=== PATIENT | female | born 1965 | race Caucasian/White ===

== ENCOUNTER 2019-04-01 11:21 | Emergency (ER) | payer OTHER, SELFPAY ==
--- NOTE | ~2019-04-01 | CT_ITS ---
EXAMINATION: CT abdomen pelvis w con DATE: 04/01/2019 13:40 INDICATION: Perirectal pain and green-colored discharge. TECHNIQUE: Computed tomography (CT) of the abdomen and pelvis was performed with 100 mL Omnipaque-350 intravenous contrast. Automated exposure control and iterative reconstruction technique were employe d. The dose-length product was 1239.60 mGy-cm. COMPARISON: 04/19/2017 FINDINGS: Mild dependent atelectasis in the bilateral lower lobes. Heart size is normal. No pericardial or pleu ral effusion. Mild aortic valve calcification. Small region of focal hepatic steatosis at the ligamen marcus teres. Gallbladder, spleen, pancreas, bilateral adrenal glands and kidneys are normal. Normal batsheva endix. A few sigmoid diverticula without adjacent inflammatory change to suggest diverticulitis. Jovani ls are otherwise unremarkable. No perirectal abscess or surrounding inflammatory stranding. Bladder i s normal. The uterus is not identified and has likely been surgically resected. No free intraperitone al gas or fluid. No pathologically enlarged abdominal or pelvic lymphadenopathy. Severe spondylosis a t the lumbosacral junction otherwise mild degenerative skeletal changes in the spine and bilateral hi ps. IMPRESSION: 1. No perirectal abscess or acute intra-abdominal/pelvic process. Reviewed, dictated and finalized at location A. KNITTER
[2019-04-01 11:30] VITALS: BP 144/90; PULSE 98; RESP 20; TEMP 36.6; O2SAT 98
--- NOTE | 2019-04-01 11:39 | ED.ABDPAIN ---
HPI - Abdominal Pain General Chief Complaint: Skin/Abscess/Foreign Body Stated Complaint: Rectal pain Time Seen by Provider: 04/01/19 11:39 Source: patient Mode of arrival: ambulatory Limitations: no limitations History of Present Illness HPI narrative: 53 year-old woman comes to the ED today for rectal pain and green rectal discharge. It is very painful to sit. She has been treated for hemorrhoids since 03/27 with topical steroids. She denies h/o hemorroids, but has had surgeries for fistulae in 2005 and 2008 in [facility]. She has also noticed erythema at her umbilicus and green drainage on a Qtip she placed there. She denies nausea, vomiting, fever, dysuria, hematuria and abdominal pain. She ate a cinnamon roll this morning for breakfast. Onset (ago): day(s) (5) Pain Consistency: constant Location: other (rectal) Severity: severe Quality: sharp Radiation: none Migration to: no migration Exacerbating factors: bowel movement and other (sitting) Relieving factors: nothing Related Data Allergies Allergy/AdvReac Type Severity Reaction Status Date / Time sumatriptan [From Imitrex] Allergy Severe Swelling Verified 04/01/19 14:05 of Lip/Tongue/Throat Sulfa (Sulfonamide Allergy Intermediate Joint Verified 04/01/19 14:05 Antibiotics) swelling Review of Systems Constitutional: Constitutional: Denies chills, Denies fever(s) and Denies weakness Eyes: Eyes: Denies change in vision and Denies photophobia ENT: Denies dysphagia, Denies nasal congestion and Denies sore throat Cardiovascular: Cardiovascular: Denies chest pain and Denies radiating jaw, neck or arm pain Respiratory: Respiratory: Denies cough, Denies dyspnea and Denies wheezing Gastrointestinal: Gastrointestinal: Reports as per HPI, Denies abdominal pain, Denies diarrhea, Denies nausea and Denies vomiting Genitourinary: Genitourinary: Denies hematuria, Denies nocturia and Denies dysuria Comments: Rash on labia Musculoskeletal: Musculoskeletal: Denies back pain and Denies arthralgias Integumentary/Breasts: Skin/Breast: Reports as per HPI, Denies pruritus, Denies erythema and Reports rash Neurologic: Denies vertigo, Denies dizziness and Denies syncope Psychiatric: Psychiatric: Denies anxiety and Denies depression Endocrine: Endocrine: Denies polydipsia and Denies polyuria Hematologic/Lymphatic: Hematologic/Lymphatic: Denies easy bleeding and Denies easy bruising Allergic/Immunologic: Allergic/Immunologic: Denies lip swelling and Denies wheezing PMFSH Past Medical History Medical History (Updated 04/01/19 @ 14:08 by Joe Tomas MD) Chronic renal failure HTN (hypertension) Migraines Surgical History Surgical History H/O sinus surgery History of History of carpal tunnel surgery Perirectal fistula x 2 Social History Social History (Updated 04/01/19 @ 12:06 by Joe Tomas MD) Smoking status: Never smoker Alcohol intake: never Substance use: never Living arrangements: with family Exam Const: General: alert Nutritional Appearance: obese Orientation/consciousness: patient oriented x3 Other: Moderate acute distress HENMT: Mouth: Yes Normal oral and palatal mucosa present and Yes moist mucous membranes Eyes: Conjunctivae: conjunctivae normal Pupils: Equal, round and reactive pupils present EOM: EOMs intact bilaterally Resp: Effort & Inspection: normal respiratory effort and not labored Auscultation: clear to auscultation bilaterally, no rales, no rhonchi and no wheezes Cardio: Rate: regular rate Rhythm: regular rhythm Heart sounds: no murmurs GI: Inspection: non-distended GI Palp: Yes Soft to palpation, No Tenderness to palpation present (GI) and No Guarding due to palpation present (GI) Auscultation: normal bowel sounds Other: Circumferential, well-demarcated perirectal erythema with patches of white exudate. There is similar erythema
[2019-04-01 12:16] LABS: Basophils Absolute Auto 0.03 K/mm3 (0.00-0.10); Basophils Percent Auto 0.2 % (0.0-1.0); Eosinophils Absolute Auto 0.18 K/mm3 (0.02-0.50); Eosinophils Percent Auto 1.2 % (1.0-6.0); Hematocrit 41.7 % (35.0-49.0); Hemoglobin 13.7 g/dL (12.0-15.0); Immature Granulocyte Absolute 0.04 K/mm3 (0.00-0.00); Immature Granulocyte Percent A 0.3 % (0.0-0.0); Lymphocytes Absolute Auto 1.51 K/mm3 (1.10-4.50); Lymphocytes Percent Auto 10.4 % (18.0-42.0); Mean Corpuscular HGB Conc 32.9 g/dL (32.0-36.0); Mean Corpuscular Volume 94.3 fL (78.0-102.0); Mean Platelet Volume 10.1 fl (9.2-11.8); Monocytes Absolute Auto 0.91 K/mm3 (0.10-0.90); Monocytes Percent Auto 6.3 % (2.0-11.0); Neutrophils Absolute Auto 11.8 K/mm3 (1.7-7.2); Neutrophils Percent Auto 81.6 % (50.0-70.0); Platelet Count Result 360 K/mm3 (150-420); Red Blood Count 4.42 M/mm3 (4.20-5.40); Red Cell Distribution Width 12.4 % (11.6-14.4); White Blood Count 14.5 K/mm3 (4.8-10.8)
[2019-04-01 12:18] LABS: Bilirubin Urine Negative (Negative); Blood Urine Negative (Negative); Glucose Urine UA Negative (Negative); Ketones Urine Negative (Negative); Leukocyte Esterase Ur Trace (Negative); Nitrate Urine Negative (Negative); Protein Urine Negative (Negative); Specific Grav Ur 1.025 (1.010-1.020); Urobilinogen Urine 0.2 mg/dL (0.2-1.0)
[2019-04-01 12:20] LABS: Add Urine Microscopic? YES; Appearance Urine Cloudy (Clear); Color Urine Dark Yellow (Yellow); WBC Urine 0-3 /hpf (0-3)
[2019-04-01 12:21] LABS: RBC Urine 0-2 /hpf (0-2); Squamous Epithelial Cell Urine Few /hpf (Few)
[2019-04-01] MEDS: SODIUM CHLORIDE 0.9% IV 1,000 ML 999 ML IV CONT (12:23)
[2019-04-01] MEDS: HYDROMORPHONE HCL 2 MG/ML VIAL 0.5 MG IV PUSH (12:23)
[2019-04-01] MEDS: ONDANSETRON INJ 4 MG/2 ML VIAL IV PUSH (12:24)
[2019-04-01 12:35] LABS: Alanine Aminotransferase 17 U/L (14-59); Albumin Level 3.8 g/dL (3.4-5.0); Alkaline Phosphatase 81 U/L (46-116); Anion Gap 16.4 mmol/L (7-16); Aspartate Amino Transferase 16 U/L (15-37); Bilirubin,Total 0.6 mg/dL (0.00-1.00); Blood Urea Nitrogen 15 mg/dL (7-18); CRP 1.7 mg/dL (0.0-0.9); Calcium 8.7 mg/dL (8.5-10.1); Carbon Dioxide 23 mmol/L (21-32); Chloride 103 mmol/L (98-108); Estimated CRCL calculation 59 ml/min; Estimated Glomerular Filt Rate 43; Glucose 92 mg/dL (70-99); Osmolality Calculated 288 mOsm/kg (285-295); Potassium 3.4 mmol/L (3.5-5.1); Sodium 139 mmol/L (136-145); Total Protein 7.9 g/dL (6.4-8.2)
[2019-04-01 12:37] LABS: Lactic Acid 1.2 mmol/L (0.4-2.0)
[2019-04-01 14:26] VITALS: BP 149/86; PULSE 87; RESP 18; O2SAT 97
== END 2019-04-01 14:30 | disposition home or self-care (01) ==
PROVIDERS: Emergency Provider Emergency Medicine; PCP Internal Medicine
DX: K61.1 Rectal abscess (principal); N18.2 Chronic kidney disease, stage 2 (mild); L03.818 Cellulitis of other sites
CPT/HCPCS: 36415; 74177; 80053; 81001; 83605; 85025; 86140; 87040; 87070; 87077; 87086; 87088; 87205; 96361; 96374; 96375; 99283; 99284; J1170; J2405; J7030; Q9965

== ENCOUNTER 2019-10-11 09:22 | Outpatient (CLI) | payer OTHER, SELFPAY ==
[2019-10-12 14:11] LABS: SARS-CoV-2 RNA PCR Positive
== END 2019-10-11 09:23 | disposition home or self-care (01) ==
LOC: CHSLAB 09:24
PROVIDERS: PCP Internal Medicine; Visit Provider Internal Medicine
DX: U07.1 COVID-19 (principal)
CPT/HCPCS: 87635; C9803; U0003

== ENCOUNTER 2020-01-20 21:15 | Observation (INO) | payer OTHER, SELFPAY ==
--- NOTE | ~2020-01-20 | US_ITS ---
EXAMINATION: US right upper quadrant DATE: 01/21/2020 08:38 INDICATION: Positive Bell sign TECHNIQUE: Multiple grayscale and Doppler ultrasound images of the abdomen were obtained. COMPARISON: CT dated 01/20/2020 FINDINGS: The pancreatic head and body are normal in appearance. The pancreatic tail is not visualized. Liver has normal echogenicity and contour, with a smooth surface. No liver lesion identified. No intrahepat ic biliary duct dilation suspected. Portal venous flow was seen in the hepatopetal, normal direction and has normal Doppler waveform. The visualized proximal inferior vena cava is normal. The gallbladde r is normal in appearance. There is no cholelithiasis. The common bile duct measures 5 mm, which is normal. Sonographic Bell sign was reported as positive by the process coach. IMPRESSION: 1. Positive sonographic Bell sign but with otherwise normal right upper quadrant ultrasound includi ng normal gallbladder with no wall thickening or cholelithiasis. Reviewed, dictated and finalized at location A. WORKER IMPRESSION: 1. Positive sonographic Bell sign but with otherwise normal right upper quadr ant ultrasound including normal gallbladder with no wall thickening or cholelit hiasis.
--- NOTE | ~2020-01-20 | CT_ITS ---
EXAMINATION: CT abdomen pelvis w con DATE: 01/20/2020 22:44 INDICATION: Right flank pain TECHNIQUE: Computed tomography (CT) of the abdomen and pelvis was performed without intravenous contr ast. Automated exposure control and iterative reconstruction technique were employed. The dose-length product was 1291.50 mGy-cm. COMPARISON: None FINDINGS: Lung bases are clear. Heart size is normal. No pericardial or pleural effusion. Aortic valve calcific ation. Small sliding-type hiatal hernia. Liver, gallbladder, spleen, pancreas, right adrenal gland an d bilateral kidneys are normal. 11 mm left adrenal nodule which can be seen dating back to 04/19/2017 a nd with relatively low density most consistent with an adenoma. Bowels including the appendix are nor mal. Bladder is normal. The uterus is not identified and has likely been surgically resected. No free intraperitoneal gas or fluid. No pathologically enlarged abdominal or pelvic lymphadenopathy. Tiny f at-containing umbilical hernia. Severe lumbosacral spondylosis with mild spondylosis in the more ceph alad lumbar and mid to lower thoracic spine. IMPRESSION: 1. No acute intra-abdominal/pelvic process. 2. Small sliding-type hiatal hernia. Reviewed, dictated and finalized at location A. AR FUSER
--- NOTE | ~2020-01-20 | XR_ITS ---
EXAMINATION: XR chest 2V DATE: 01/20/2020 21:57 INDICATION: Right flank pain TECHNIQUE: PA and lateral views of the chest were obtained. COMPARISON: None FINDINGS: The lungs are clear with no focal airspace opacities, pulmonary edema, pleural effusion or pneumothor ax. The cardiomediastinal silhouette is normal. Mild to moderate thoracic spondylosis. IMPRESSION: 1. No acute cardiopulmonary disease. Reviewed, dictated and finalized at location A. EATIONAL [employer]AC[employer]IES MOTEL MANAGER
[2020-01-20 21:15] VITALS: BP 153/100; PULSE 82; RESP 20; TEMP 36.6; O2SAT 99
[2020-01-20 21:19] VITALS: PULSE 77
--- NOTE | 2020-01-20 21:41 | ECG_ITS ---
Measurements Intervals [place] Rate: 72 P: 52 [place]: 142 QRS: -12 QRSD: 98 T: 31 QT: 427 QTc: 470 Interpretive Statements SINUS RHYTHM EARLY PRECORDIAL R/S TRANSITION LOW QRS VOLTAGE IN PRECORDIAL LEADS VOLTAGE CRITERIA FOR LVH MINIMAL Q WAVES- HIGH LATERAL LEADS BORDERLINE ECG Electronically Signed On 01-21-2020 7:15:53 HAND SUTURE WINDER by Bro Millan D.O.
--- NOTE | 2020-01-20 21:47 | ED.ABDPAIN ---
HPI - Abdominal Pain General Chief Complaint: Chest Pain Stated Complaint: 54 YO female w/ 4-5 day h/o R chest/RUQ abd pain that started after she ate a fatty meal. States she thought she had covid but was tested negative on tuesday. here for evaluation and pain relief. Related Data Home Medications Medication Instructions Recorded Confirmed atorvastatin 10 mg PO DAILY 01/20/20 01/20/20 hyoscyamine sulfate 0.375 mg PO BID 01/20/20 01/20/20 nortriptyline 50 mg PO DAILY 01/20/20 01/20/20 spironolacton-hydrochlorothiaz 1 tablet PO DAILY 01/20/20 01/20/20 topiramate 100 mg PO BID 01/20/20 01/20/20 Allergies Allergy/AdvReac Type Severity Reaction Status Date / Time sumatriptan [From Imitrex] Allergy Severe Swelling Verified 06/22/19 07:57 of Lip/Tongue/Throat Sulfa (Sulfonamide Allergy Intermediate Joint Verified 06/22/19 07:57 Antibiotics) swelling hydrocodone Allergy Unknown Verified 01/20/20 21:32 SUMATRIPTAN SUCCINATE Allergy Severe CLOSED Uncoded 06/22/19 07:57 AIRWAY Review of Systems Review of Systems: All systems reviewed & are unremarkable except as noted in HPI and below Constitutional: Constitutional: Reports no additional constitutional complaints, Reports chills and Denies fever(s) Cardiovascular: Cardiovascular: Reports no additional cardiovascular complaints Respiratory: Respiratory: Reports no additional respiratory complaints Gastrointestinal: Gastrointestinal: Reports abdominal pain (RUQ abd pain), Reports heartburn and Reports nausea Genitourinary: Genitourinary: Reports no additional female genitourinary complaints Musculoskeletal: Musculoskeletal: Reports no additional musculoskeletal complaints Integumentary/Breasts: Skin/Breast: Reports system reviewed and no additional complaints, except as docu Neurologic: Reports system reviewed and no additional complaints, except as documented Psychiatric: Psychiatric: Reports no additional psychiatric complaints Endocrine: Endocrine: Reports no additional endocrine complaints Hematologic/Lymphatic: Hematologic/Lymphatic: Reports no additional hematologic/lymphatic complaints Allergic/Immunologic: Allergic/Immunologic: Reports no additional allergic/immunologic complaints PMFSH Past Medical History Medical History Chronic renal failure HTN (hypertension) Migraines Surgical History Surgical History H/O sinus surgery History of History of carpal tunnel surgery Perirectal fistula x 2 Family History Family History Mother Hypertension Father Family history of congestive heart failure Grandparent Hypertension Other Diabetes mellitus Social History Social History Smoking status: Former smoker Smoking end date: 02/14/06 Alcohol intake: current Substance use: never Exam Const: General: alert and ill appearing Nutritional Appearance: obese Orientation/consciousness: patient oriented x3 Limitations: no limitations HENMT: Head: normal to inspection General nose exam: Normal nares present Face and sinus: normal facial exam Mouth: Yes Normal oral and palatal mucosa present Teeth and gingiva: dentition normal Throat: posterior oropharynx normal Eyes: Conjunctivae: conjunctivae normal Pupils: Equal, round and reactive pupils present Neck: Neck: normal visual inspection Chest: Chest palpation & inspection: normal inspection of the chest Resp: Effort & Inspection: normal respiratory effort Auscultation: clear to auscultation bilaterally Cardio: Rate: regular rate Rhythm: regular rhythm GI: Inspection: non-distended GI Palp: Yes Soft to palpation and Yes Tenderness to palpation present (GI) (RUQ TTP w/ positive pendleton's sign) Percussion: Yes normal to percussion Auscu
[2020-01-20 22:08] LABS: Basophils Absolute Auto 0.04 K/mm3 (0.00-0.10); Basophils Percent Auto 0.4 % (0.0-1.0); Eosinophils Absolute Auto 0.27 K/mm3 (0.02-0.50); Eosinophils Percent Auto 2.8 % (1.0-6.0); Hematocrit 41.9 % (35.0-49.0); Hemoglobin 13.9 g/dL (12.0-15.0); Immature Granulocyte Absolute 0.03 K/mm3 (0.00-0.00); Immature Granulocyte Percent A 0.3 % (0.0-0.0); Lymphocytes Absolute Auto 2.61 K/mm3 (1.10-4.50); Lymphocytes Percent Auto 27.3 % (18.0-42.0); Mean Corpuscular HGB Conc 33.2 g/dL (32.0-36.0); Mean Corpuscular Hemoglobin 30.3 pg (27.0-31.0); Mean Corpuscular Volume 91.5 fL (78.0-102.0); Mean Platelet Volume 10.5 fl (9.2-11.8); Monocytes Absolute Auto 0.67 K/mm3 (0.10-0.90); Neutrophils Percent Auto 62.2 % (50.0-70.0); Platelet Count Result 319 K/mm3 (150-420); Red Blood Count 4.58 M/mm3 (4.20-5.40); Red Cell Distribution Width 12.3 % (11.6-14.4); White Blood Count 9.6 K/mm3 (4.8-10.8)
[2020-01-20] MEDS: ONDANSETRON INJ 4 MG/2 ML VIAL IV PUSH (22:20)
[2020-01-20] MEDS: MORPHINE SULFATE (*CRX) 2 MG/ML INJ IV PUSH (22:20)
[2020-01-20] MEDS: SODIUM CHLORIDE 0.9% IV 1,000 ML 999 ML IV CONT (22:20)
[2020-01-20 22:22] LABS: D Dimer 0.27 mg/L (0.19-0.50); INR 0.9; Partial Thromboplastin Time 26.5 SEC (23.90-30.70)
[2020-01-20 22:24] LABS: Alanine Aminotransferase 14 U/L (14-59); Albumin Level 3.7 g/dL (3.4-5.0); Alkaline Phosphatase 70 U/L (46-116); Anion Gap 13 mmol/L (8-16); Aspartate Amino Transferase 11 U/L (15-37); Bilirubin,Total 0.3 mg/dL (0.00-1.00); Blood Urea Nitrogen 24 mg/dL (7-18); Calcium 8.6 mg/dL (8.5-10.1); Carbon Dioxide 23 mmol/L (21-32); Chloride 104 mmol/L (98-108); Estimated CRCL calculation 55 ml/min; Estimated Glomerular Filt Rate 42; Glucose 91 mg/dL (70-99); Osmolality Calculated 294 mOsm/kg (285-295); Potassium 3.4 mmol/L (3.5-5.1); Sodium 140 mmol/L (136-145); Total Protein 7.3 g/dL (6.4-8.2); Troponin I 18.1 ng/L (0.00-60.4)
[2020-01-20 22:28] LABS: BNP 40.1 pg/mL (0-100)
[2020-01-20 23:25] VITALS: BP 130/79; PULSE 73; RESP 20; O2SAT 98
[2020-01-20] MEDS: SODIUM CHLORIDE 0.9% IV 1,000 ML 150 ML IV CONT (23:51)
--- NOTE | 2020-01-20 23:52 | PC.NURSE ---
ERP discussed POC c pt. Orders to admit for OBS. received.
[2020-01-21 00:24] VITALS: BP 133/75; PULSE 72; RESP 20; TEMP 36.6; O2SAT 98
[2020-01-21 00:42] VITALS: BMI 33.5
--- NOTE | 2020-01-21 01:07 | PC.NURSE ---
Female patient transported by stretcher from ER. C/O abd pain. #18 gauge IV in right AC. NS going at 150 cc/hr. Alert and oriented x3. Answers questions appropiately. No skin issures observed. Placed in bed in Room 204. Instructed integration analyst light, room, routines. Patient states understanding.
[2020-01-21 01:12] VITALS: BP 163/82; PULSE 71; RESP 18; TEMP 36.2; O2SAT 98
--- NOTE | 2020-01-21 01:30 | PC.NURSE ---
Patient had recent Covid test. Results were negative.
[2020-01-21] MEDS: DEXTROSE 5%/0.9% SOD CHL 1,000 ML 100 ML IV CONT (01:40)
--- NOTE | 2020-01-21 02:11 | PC.NURSE ---
Patient resting quietly. IV of D5/NS infusing at 100 cc/hr. Patient resting quietly, resp even. SR up x2. Call light within reach.
[2020-01-21] MEDS: MORPHINE SULFATE (*CRX) 2 MG/ML INJ IV PUSH ×2 (03:01→07:20)
--- NOTE | 2020-01-21 03:03 | PC.NURSE ---
Patient grimacing and c/o abd pain rating at a 9:10. PRN pain medication given.
[2020-01-21 03:42] VITALS: BP 121/76; PULSE 69; RESP 18; TEMP 36.1; O2SAT 95
[2020-01-21 05:31] LABS: Basophils Absolute Auto 0.02 K/mm3 (0.00-0.10); Basophils Percent Auto 0.3 % (0.0-1.0); Eosinophils Absolute Auto 0.28 K/mm3 (0.02-0.50); Eosinophils Percent Auto 3.6 % (1.0-6.0); Hematocrit 36.7 % (35.0-49.0); Hemoglobin 11.9 g/dL (12.0-15.0); Immature Granulocyte Absolute 0.02 K/mm3 (0.00-0.00); Immature Granulocyte Percent A 0.3 % (0.0-0.0); Lymphocytes Absolute Auto 2.25 K/mm3 (1.10-4.50); Lymphocytes Percent Auto 28.9 % (18.0-42.0); Mean Corpuscular HGB Conc 32.4 g/dL (32.0-36.0); Mean Corpuscular Hemoglobin 30.3 pg (27.0-31.0); Mean Corpuscular Volume 93.4 fL (78.0-102.0); Mean Platelet Volume 10.7 fl (9.2-11.8); Monocytes Absolute Auto 0.56 K/mm3 (0.10-0.90); Monocytes Percent Auto 7.2 % (2.0-11.0); Neutrophils Absolute Auto 4.7 K/mm3 (1.7-7.2); Neutrophils Percent Auto 59.7 % (50.0-70.0); Platelet Count Result 268 K/mm3 (150-420); Red Blood Count 3.93 M/mm3 (4.20-5.40); Red Cell Distribution Width 12.3 % (11.6-14.4); White Blood Count 7.8 K/mm3 (4.8-10.8)
--- NOTE | 2020-01-21 06:00 | PC.NURSE ---
SBA up to bathroom to void, tolerated well, facial grimacing when getting out of bed, moving slowly, steady, fluids infusing
[2020-01-21 08:00] VITALS: BP 131/84; PULSE 67; RESP 16; TEMP 35.9; O2SAT 99
[2020-01-21] MEDS: HYOSCYAMINE SULFATE 0.125 MG TABLET PO (08:50)
[2020-01-21] MEDS: hydroCHLOROthiazide 25 MG TABLET PO (08:51)
[2020-01-21] MEDS: SPIRONOLACTONE 25 MG TABLET PO (08:51)
[2020-01-21] MEDS: ATORVASTATIN 10 MG TABLET PO (08:51)
[2020-01-21] MEDS: NORTRIPTYLINE HCL 25 MG CAPSULE 50 MG PO (08:51)
[2020-01-21] MEDS: TOPIRAMATE 25 MG TABLET 100 MG PO (08:52)
[2020-01-21] MEDS: ENOXAPARIN 40 MG/0.4 ML SYRINGE SUB-Q (08:52)
[2020-01-21] MEDS: POTASSIUM CHLORIDE 20 MEQ TABLET 40 MEQ PO (09:37)
--- NOTE | 2020-01-21 11:18 | PM.SD ---
Same Day Admit/Disch: HPI History of Present Illness Chief complaint: RUQ abd pain cholelithiasis <ALE Sheets - Last Filed: 01/21/20 11:30> Narrative: Rosa Isela Landa is a 54 year old female that presented to the ED with complaints of right upper quadrant pain and nausea. Patient has a past medical history of chronic renal failure, hypertension and migraines. According to patient Tuesday she started developing pain in her right upper quadrant. She did note that she took ibuprofen at home with no relief. She also noted that after she ate her pain increased. She also experienced nausea with no vomiting and presented to the ED because the pain was unbearable yesterday. Today patient continues to have right upper quadrant tenderness with occasional nausea. Patient diagnostic test did return back negative we will advance her diet and discharge her with a follow-up with her primary care physician. We will consult her primary care physician for possible consult with a GI to scope her for possible ulcer <ALE Sheets - Last Filed: 01/21/20 11:30> [facility] Past Medical History Medical History: Medical History Chronic renal failure HTN (hypertension) Migraines <ALE Sheets - Last Filed: 01/21/20 11:30> Surgical History Surgical History: Surgical History H/O sinus surgery History of History of carpal tunnel surgery Perirectal fistula x 2 <ALE Sheets - Last Filed: 01/21/20 11:30> Family History Family History: Family History Mother Hypertension Father Family history of congestive heart failure Grandparent Hypertension Other Diabetes mellitus <ALE Sheets - Last Filed: 01/21/20 11:30> Social History Social History: Social History Smoking status: Never smoker Second hand tobacco smoke exposure: No Smoking end date: 02/14/06 Alcohol intake: never Substance use: never Substance use type: does not use Gender identity (if verbalized by the patient): Female Sexual Orientation (if Verbalized by the Patient): Straight or Heterosexual Spiritual care concerns: No <ALE Sheets - Last Filed: 01/21/20 11:30> Same Day Admit/Disch: Med Pre-admit Medications Home Medications: Home Medications Medication Instructions Recorded Confirmed Type atorvastatin 10 mg PO DAILY 01/20/20 01/20/20 History hyoscyamine sulfate 0.375 mg PO BID 01/20/20 01/20/20 History nortriptyline 50 mg PO DAILY 01/20/20 01/20/20 History spironolacton-hydrochlorothiaz 1 tablet PO DAILY 01/20/20 01/20/20 History topiramate 100 mg PO BID 01/20/20 01/20/20 History ondansetron HCl [Zofran] 4 mg PO Q8H PRN #30 tablet 01/21/20 Rx oxycodone-acetaminophen 1 tablet PO Q6H PRN #14 tablet 01/21/20 Rx pantoprazole 20 mg PO QAM 56 Days #56 tablet 01/21/20 Rx <ALE Sheets - Last Filed: 01/21/20 11:30> Exam Narrative: Exam Narrative: GENERAL: This is a well-nourished, well-developed patient, in no apparent distress. HEAD: normocephalic, atraumatic. EYES: PERRL. Sclera clear/white. Vision is grossly intact. EARS: External ears normal, auditory canals clear and without drainage, TMs normal without perforation. Hearing grossly intact. NOSE: External nose normal with no obvious nasal discharge, nares without redness, no rhinorrhea. THROAT: Mucous membranes moist, posterior pharynx clear. NECK: Neck supple, non-tender without lymphadenopathy, masses or thyromegaly. CARDIOVASCULAR: Regular rate and rhythm without murmurs, gallops, or rubs. RESPIRATORY: Clear to auscultation. Breath sounds equal bilaterally. No wheezes, rales, or rhonchi. GASTROINTESTINAL: Abdomen soft, right upper quadrant tenderness. B
[2020-01-21 12:24] LABS: Lipase 532 U/L (73-393)
--- NOTE | 2020-01-30 11:13 | PC.NURSE ---
Unable to contact for discharge call back.
== END 2020-01-21 12:40 | disposition home or self-care (01) ==
LOC: CHSED 23:30 → CHS2ND 01-21 07:34
PROVIDERS: Nurse Practitioner; Admitting Provider Family Medicine; Emergency Provider Family Medicine; PCP Internal Medicine; Visit Provider Family Medicine
DX: R10.11 Right upper quadrant pain (principal); R07.9 Chest pain, unspecified; I12.9 Hypertensive chronic kidney disease with stage 1 through stage 4 chronic kidney disease, or unspecified chronic kidney disease; N18.2 Chronic kidney disease, stage 2 (mild); G43.909 Migraine, unspecified, not intractable, without status migrainosus; Z87.891 Personal history of nicotine dependence
CPT/HCPCS: 36415; 71046; 74177; 76705; 80053; 83690; 83880; 84484; 85025; 85380; 85610; 85730; 93005; 96361; 96365; 96372; 96375; 96376; 99285; A9270; G0378; J1650; J2270; J2405; J2543; J7030; J7042; Q9965

== ENCOUNTER 2020-04-04 09:20 | Outpatient (CLI) | payer OTHER, SELFPAY | END 2020-04-04 09:21 | disposition home or self-care (01) | LOC: ANHBWCAUD 09:20 | PROVIDERS: PCP Internal Medicine; Visit Provider Otolaryngology | DX: H93.13 Tinnitus, bilateral (principal); H90.3 Sensorineural hearing loss, bilateral | CPT/HCPCS: 92557; 92567 ==

== ENCOUNTER 2020-06-05 07:23 | Outpatient (CLI) | payer OTHER, SELFPAY ==
--- NOTE | 2020-06-05 08:16 | ECHO_ITS ---
Patient Info Name: Rosa Isela Landa Age: 54 years : 1965 Gender: Female Ht: 69 in Wt: 345 lbs BSA: 2.85 m2 HR: 66 bpm BP: 164 / 109 mmHg Technical Quality: Fair Exam Date: 06/05/2020 8:21 AM Exam Location: [facility] Patient Status: Outpatient Admit Date: 06/05/2020 Staff Ordering Physician: Bro Millan DO [employer] Transport Driver: Monique Gonzlaez RDCS Attending Provider: Bro Millan DO Referring Physician: Monty MARTÍNEZ; Exam Type: CA echo dop color flow w con Study Info Indications R42 - Dizziness and giddiness Complete two-dimensional, color flow and Doppler transthoracic echocardiogram is performed with contrast to opacify the left ventricle and to improve the deliniation of the left ventricle endocardial borders. Contrast/Agitated Saline Contrast/Ag. Saline: Definity Amount: 1.50 ml Administered By: Janie Doty RN New IV Access: Antecubital Space and Right Site Condition: No extravasation and IV removed Summary 1. Left ventricular chamber dimension is normal. 2. Definity contrast administered improved wall motion interpretation. 3. Left ventricular systolic function is normal, estimated at 65-70%. 4. The left ventricular diastolic function is normal. 5. E/e' 9 is minimally elevated. 6. Global longitudinal strain is normal at -17.9%. 7. There is trace mitral valve regurgitation. 8. There is mild tricuspid valve regurgitation. 9. No pulmonary hypertension, estimated pulmonary arterial systolic pressure is 27 mmHg. Left Ventricle E/e' 9 is minimally elevated. Global longitudinal strain is normal at -17.9%. Definity contrast administered improved wall motion interpretation. Left ventricular chamber dimension is normal. Left ventricular systolic function is normal, estimated at 65-70%. The left ventricular diastolic function is normal. Right Ventricle Right ventricular chamber dimension is normal. Right ventricular systolic function is normal. Left Atria Left atrial chamber dimension is normal. Right Atria Right atrial chamber dimension is normal. Aortic Valve The aortic valve is trileaflet. There is no aortic valve stenosis. There is no aortic valve regurgitation. Pulmonic Valve There is no pulmonic regurgitation. Mitral Valve There is no mitral valve stenosis. There is trace mitral valve regurgitation. Tricuspid Valve There is mild tricuspid valve regurgitation. No pulmonary hypertension, estimated pulmonary arterial systolic pressure is 27 mmHg. Pericardium/Pleural There is no pericardial effusion. Inferior Vena Cava Normal inferior vena cava with >50% collapse upon inspiration consistent with normal right atrial pressure, 5 mmHg. Aorta The aortic root size at the sinus of Valsalva is normal. Left Ventricular Outflow Tract Name Value Normal LVOT 2D LVOT Diameter 1.90 cm LVOT Doppler LVOT Peak Gradient 4 mmHg LVOT Mean Gradient 2 mmHg LVOT VTI 23.49 cm LVOT VTI/AV VTI Ratio 0.55
== END 2020-06-05 07:24 | disposition home or self-care (01) ==
PROVIDERS: PCP Internal Medicine; Visit Provider Internal Medicine Cardiovascular Disease
DX: R42 Dizziness and giddiness (principal)
CPT/HCPCS: C8929

== ENCOUNTER 2020-06-23 09:00 | Outpatient (RCR) | payer OTHER, SELFPAY ==
--- NOTE | 2020-04-14 13:53 | PTOPEVAL ---
PHYSICAL THERAPY EVALUATION AND PLAN OF CARE 04-14-20 Thank you for referring Rosa Isela Landa to [facility] for the diagnosis of vestibular rehab/ dizziness.? Skye is scheduled to be seen for therapy? 1-2 x/week for 6 weeks. Please review, sign, date and return this plan of care JESUS. I agree with and certify that the following plan of care is medically necessary. Referring Physician Date Attending Provider: Tristen Tamez MD PT Outpatient Evaluation Document 04/14/20 12:30 JAYSNO (Rec: 04/14/20 13:51 JAYSON [id number]) Outpatient Past Medical History Past Medical History Source of Past Medical History Recalled from Previous Visit, Confirmed with Patient/Family Neurological History Hx Migraine Yes: take meds to control, occur 1-2 x/ 6 months Cardiovascular History Hx Hypertension Yes: meds Respiratory History Hx Respiratory Disorders No Significant History Gastrointestinal History Hx Gastrointestinal Disorders No Significant History Genitourinary History Hx Genitourinary Disorders No Significant History Musculoskeletal History Hx Orthopedic Surgery Yes: carpal tunnel bilateral Endocrine History Hx Endocrine Disorders No Significant History HEENT History Hx Sinus Problems Yes: SINUS SURGERY Hx Other HEENT Disorders Yes: L eye laser surgery for vision repair Reproductive History Hx Section Yes Hx Hysterectomy Yes Other History Hx Other Surgeries Yes: 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;COVID-Sep 2019 Evaluation Information Problem Diagnosis Dizziness; vestibular rehab Onset Mar 05, 2020 Prior Level of Function Activity Level (Last 3 Months) 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
--- NOTE | 2020-05-26 10:05 | PTOPEVAL ---
PHYSICAL THERAPY RE-EVALUATION AND UPDATED PLAN OF CARE 05-26-20 Refer to the clinical summary below for her status with today's reeval, compared to the initial evaluation. The goals were partially achieved. Continue PT treatment, 1-2x/week for 6 weeks. Thank you for referring Rosa Isela Landa to [facility].? Please review, sign, date and return this plan of care [facility]. I agree with and certify that the following plan of care is medically necessary. Referring Physician Date Attending Provider: Tristen Tamez MD *PT Outpatient Re-Evaluation Document 05/26/20 09:00 JAYSON (Rec: 05/26/20 10:01 JAYSON [id number]) Subjective Information Skye reports: continue to have Query Text:As Reported By Patient/ pressure and soreness/hurting Family in R ear, ringing in both ears all time- sometimes worse and unbearable; feel like pressure in head--whole head feels different and weird; do not feel right; use cane in the house if having a bad day, use cane when go out places; have not tried driving; when passenger- do not look out the window, did OK for about 1 hour ride in the car; have not had any falls; feel like have improved--not as dizzy or nauseated as before; taking meclazine as needed, last week only took once; saw estate conservator- going for heart tests on ; neurology appt June 19; still having some memory problems and cannot recall things or names; also have an ulcer and upset stomach; Pain Assessment Timing of Pain Assessment Timing of Pain Assessment Assessment Self Report Self Report Pain Level 0 Pain Score Pain Score 0: Self Report Vestibular Evaluation Vestibular Medical Information Other Symptoms Comments increase s/s: dark, bend forward/raise up, quick head motions R/L, get up from sit to standing; Symptoms Decrease Holding Head in one Position, Moving Slowly Standardized Tests Dizziness Handicap Inventory Standardized Test Scores (Number 0-100) 74 Vestibular Testing Vestibular Testing Comments standing:
--- NOTE | 2020-06-09 12:55 | PCPTNOTE ---
pt called and canceled due to not feeling well;
--- NOTE | 2020-06-16 09:38 | PCPTNOTE ---
pt called and canceled her appt due to a change in her insurance; I called her, she stated saw last week, he gave her release to be off work another 6 weeks, and her employer terminated her. She stated she has not been sleeping and has a new med to help with sleeping. Discussed with her to continue HEP and activity as tolerated. She will call when her COBRA insurance is established and can resume PT.
--- NOTE | 2020-06-23 09:39 | PCPTNOTE ---
Patient called & cancelled scheduled appointment this date due to insurance.
--- NOTE | 2020-06-30 09:36 | PCPTNOTE ---
Patient called & cancelled scheduled appointment this date due to no insurance.
--- NOTE | 2020-07-04 11:23 | PCPTNOTE ---
PHYSICAL THERAPY DISCHARGE 07-04-20 Attending Provider: Tristen Tamez MD Patient:Rosa Isela Landa Date of :1965 Mrs. Zabala called and canceled her PT appointments, due to a change in her insurance. Therefore she will be discharged at this time. She has received 7 PT sessions, for the diagnosis of dizziness, vertigo and gait imbalance, from April 14 to June 04. The goals were not assessed. Thank you for referring Skye to [facility]. Please review, sign, date and return this discharge summary JESUS. I have been updated about the patient's current status and I agree with discharge from the above service at this time. Referring Physician Date
== END 2020-07-04 14:40 | disposition home or self-care (01) ==
LOC: ANHPT 09:00
PROVIDERS: PCP Internal Medicine; Visit Provider Otolaryngology
DX: R42 Dizziness and giddiness (principal)
CPT/HCPCS: 97110; 97162

== ENCOUNTER 2020-11-18 12:23 | Outpatient (CLI) | payer OTHER, SELFPAY ==
--- NOTE | ~2020-11-18 | XR_ITS ---
XR knee RT 3V DATE: 11/18/2020 13:30 INDICATION: Knee pain TECHNIQUE: AP, lateral, sunrise views COMPARISON: None FINDINGS: There is tricompartment osteoarthritis with periarticular spurring at all 3 compartments, m ost prominent laterally. There is prominent chondrocalcinosis at all 3 compartments. Diffuse osteopenia. Mild suprapatellar knee joint effusion. No fracture, dislocation, periosteal reaction or bone destruction. IMPRESSION: Osteopenia Mild suprapatellar knee joint effusion Prominent chondrocalcinosis Mild to moderate tricompartment osteoarthritis Reviewed, dictated and finalized at location A.
--- NOTE | ~2020-11-18 | XR_ITS ---
XR knee LT 3V DATE: 11/18/2020 13:30 INDICATION: Chronic knee pain TECHNIQUE: AP, lateral and sunrise views COMPARISON: 11/03/2017 left knee FINDINGS: Diffuse osteopenia. No fracture or dislocation, periosteal reaction or bone destruction. Mild suprapatellar knee joint effusion is suggested. There is tricompartment osteoarthritis with mild periarticular spurring. There is prominent chondroca lcinosis involving all 3 compartments. IMPRESSION: Osteopenia Prominent chondrocalcinosis Mild tricompartment osteoarthritis Small knee joint effusion Reviewed, dictated and finalized at location A.
[2020-11-18 12:39] LABS: Add Urine Microscopic? YES; Appearance Urine Clear (Clear); Basophils Absolute Auto 0.04 K/mm3 (0.00-0.10); Basophils Percent Auto 0.5 % (0.0-1.0); Bilirubin Urine Negative (Negative); Blood Urine Negative (Negative); Color Urine Light Yellow (Yellow); Eosinophils Absolute Auto 0.22 K/mm3 (0.02-0.50); Eosinophils Percent Auto 2.6 % (1.0-6.0); Glucose Urine UA Negative (Negative); Hematocrit 42.5 % (35.0-49.0); Immature Granulocyte Absolute 0.02 K/mm3 (0.00-0.00); Immature Granulocyte Percent A 0.2 % (0.0-0.0); Ketones Urine Negative (Negative); Leukocyte Esterase Ur 1+ (Negative); Lymphocytes Percent Auto 21.5 % (18.0-42.0); Mean Corpuscular HGB Conc 32.9 g/dL (32.0-36.0); Mean Corpuscular Hemoglobin 30.6 pg (27.0-31.0); Mean Corpuscular Volume 92.8 fL (78.0-102.0); Mean Platelet Volume 10.5 fl (9.2-11.8); Monocytes Absolute Auto 0.51 K/mm3 (0.10-0.90); Monocytes Percent Auto 6.1 % (2.0-11.0); Neutrophils Absolute Auto 5.8 K/mm3 (1.7-7.2); Neutrophils Percent Auto 69.1 % (50.0-70.0); Nitrate Urine Negative (Negative); Platelet Count Result 341 K/mm3 (150-420); Protein Urine Negative (Negative); Red Blood Count 4.58 M/mm3 (4.20-5.40); Red Cell Distribution Width 12.4 % (11.6-14.4); Urobilinogen Urine 0.2 mg/dL (0.2-1.0); White Blood Count 8.4 K/mm3 (4.8-10.8); pH Urine 6.5 (5.0-8.0)
[2020-11-18 13:37] LABS: Bacteria Urine 1+ /hpf; RBC Urine None seen /hpf (0-2); Squamous Epithelial Cell Urine Rare /hpf (Few)
[2020-11-18 13:54] LABS: Alanine Aminotransferase 21 U/L (14-59); Alkaline Phosphatase 68 U/L (46-116); Anion Gap 12 mmol/L (8-16); Aspartate Amino Transferase 11 U/L (15-37); Bilirubin,Total 0.4 mg/dL (0.00-1.00); Blood Urea Nitrogen 21 mg/dL (7-18); Calcium 9.1 mg/dL (8.5-10.1); Carbon Dioxide 26 mmol/L (21-32); Chloride 107 mmol/L (98-108); Estimated Glomerular Filt Rate 55; Glucose 85 mg/dL (70-99); NT Pro B Type Natriuretic Pept 201 pg/mL (0-125); Osmolality Calculated 302 mOsm/kg (285-295); Potassium 4.2 mmol/L (3.5-5.1); Sodium 145 mmol/L (136-145)
[2020-11-18 13:55] LABS: CRP < 0.5 mg/dL (0.0-0.9)
== END 2020-11-18 12:24 | disposition home or self-care (01) ==
LOC: CHSLAB 12:26
PROVIDERS: PCP Internal Medicine; Visit Provider Internal Medicine
DX: I10 Essential (primary) hypertension (principal); R60.9 Edema, unspecified; M25.562 Pain in left knee; M25.561 Pain in right knee; M11.262 Other chondrocalcinosis, left knee; M11.261 Other chondrocalcinosis, right knee; M17.0 Bilateral primary osteoarthritis of knee
CPT/HCPCS: 36415; 73562; 80053; 81001; 83880; 84443; 84550; 85025; 86140

== ENCOUNTER 2020-11-30 11:23 | Emergency (ER) | payer OTHER, SELFPAY ==
--- NOTE | ~2020-11-30 | CT_ITS ---
EXAMINATION: CT abdomen pelvis w con DATE: 11/30/2020 13:01 INDICATION: Left-sided abdominal pain for 2 days. History of diverticulitis. TECHNIQUE: Computed tomography (CT) of the abdomen and pelvis was performed with 100 cc Omnipaque 350 intravenous contrast. The dose-length product was 1303.76 mGy-cm. Automated exposure control and ite rative reconstruction technique were employed. COMPARISON: CT dated 01/20/2020. FINDINGS: Lung bases are unremarkable. Heart size normal. Small hiatal hernia. No significant vascula r abnormality. No lymphadenopathy. Status post hysterectomy. Small fat-containing umbilical hernia. Fatty infiltration of the liver. The spleen, pancreas, adrenal glands and kidneys are unremarkable. G allbladder is present. Nonobstructive bowel gas pattern. No free air or free fluid. Mild lumbar spond ylosis. IMPRESSION: 1. No acute abdominal abnormality. Reviewed, dictated and finalized at location A.
[2020-11-30 11:30] VITALS: BP 187/100; PULSE 66; RESP 16; TEMP 36.2; O2SAT 100
--- NOTE | 2020-11-30 11:46 | ED.ABDPAIN ---
HPI - Abdominal Pain General Chief Complaint: Urogenital-Female Stated Complaint: L side pain Time Seen by Provider: 11/30/20 11:46 Source: patient Mode of arrival: ambulatory Limitations: no limitations History of Present Illness HPI narrative: 55-year-old woman with a history of diverticulitis comes in today complaining of left-sided abdominal pain nausea and vomiting that started last night. Patient states she is also having painful and frequent urination. She states she feels like she has had some chills and sometimes feels feverish. She denies cough or cold symptoms, diarrhea, hematuria, chest pain, shortness of breath. MD elicited complaint: abdominal pain Pertinent past history: diverticulitis Onset (ago): day(s) (1) Pain Consistency: constant Location: L flank Severity: moderate Quality: sharp Radiation: back Migration to: no migration Exacerbating factors: movement Relieving factors: rest Associated symptoms: nausea, vomiting, fever, chills and dysuria Related Data Home Medications Medication Instructions Recorded Confirmed atorvastatin 10 mg PO DAILY 01/20/20 11/30/20 hyoscyamine sulfate 0.375 mg PO BID 01/20/20 11/30/20 nortriptyline 50 mg PO DAILY 01/20/20 11/30/20 spironolacton-hydrochlorothiaz 1 tablet PO DAILY 01/20/20 11/30/20 topiramate 100 mg PO BID 01/20/20 11/30/20 lisinopril 10 mg tablet 10 mg PO DAILY 04/29/20 11/30/20 verapamil 240 mg 24 hr 240 mg PO DAILY 04/29/20 11/30/20 capsule,extended release Allergies Allergy/AdvReac Type Severity Reaction Status Date / Time sumatriptan [From Imitrex] Allergy Severe Swelling Verified 07/07/20 14:09 of Lip/Tongue/Throat Sulfa (Sulfonamide Allergy Intermediate Joint Verified 07/07/20 14:09 Antibiotics) swelling hydrocodone Allergy Unknown Verified 07/07/20 14:09 SUMATRIPTAN SUCCINATE Allergy Severe CLOSED Uncoded 07/07/20 14:09 AIRWAY Review of Systems Review of Systems: All systems reviewed & are unremarkable except as noted in HPI and below Constitutional: Constitutional: Reports chills and Reports fever(s) ENT: Denies nasal congestion and Denies sore throat Cardiovascular: Cardiovascular: Denies chest pain and Denies radiating jaw, neck or arm pain Respiratory: Respiratory: Denies cough and Denies dyspnea Gastrointestinal: Gastrointestinal: Reports abdominal pain, Denies diarrhea, Reports nausea and Reports vomiting Genitourinary: Genitourinary: Denies hematuria, Reports nocturia and Reports dysuria Musculoskeletal: Musculoskeletal: Denies back pain, Denies arthralgias and Denies joint swelling Integumentary/Breasts: Skin/Breast: Denies pruritus, Denies erythema and Denies rash Neurologic: Denies vertigo, Denies dizziness, Denies syncope and Denies focal weakness Hematologic/Lymphatic: Hematologic/Lymphatic: Denies easy bleeding and Denies easy bruising PMFSH Past Medical History Medical History Chronic renal failure HTN (hypertension) Migraines Surgical History Surgical History H/O sinus surgery History of History of carpal tunnel surgery History of hysterectomy Perirectal fistula x 2 Family History Family History Mother Hypertension Father Family history of congestive heart failure Grandparent Hypertension Other Diabetes mellitus Social History Social History (Updated 11/30/20 @ 11:58 by Joe Tomas MD) Smoking status: Former smoker Second hand tobacco smoke exposure: No Smoking end date: 02/14/06 Alcohol intake: never Substance use: never Substance use type: does not use Gender identity (if verbalized by the patient): Female Sexual Orientation (if Verbalized by the Patient): Straight or Heterosexual Spiritual care concerns: No Exam Const: General: healthy appearing and alert Severo
[2020-11-30] MEDS: ONDANSETRON INJ 4 MG/2 ML VIAL IV PUSH (12:06)
[2020-11-30] MEDS: HYDROmorphone HCL INJ (*CRX) 2 MG/ML VIAL 0.5 MG IV PUSH (12:08)
[2020-11-30 12:12] LABS: Basophils Absolute Auto 0.03 K/mm3 (0.00-0.10); Basophils Percent Auto 0.3 % (0.0-1.0); Eosinophils Absolute Auto 0.13 K/mm3 (0.02-0.50); Eosinophils Percent Auto 1.4 % (1.0-6.0); Hematocrit 44.9 % (35.0-49.0); Hemoglobin 14.6 g/dL (12.0-15.0); Immature Granulocyte Absolute 0.03 K/mm3 (0.00-0.00); Immature Granulocyte Percent A 0.3 % (0.0-0.0); Lymphocytes Absolute Auto 1.56 K/mm3 (1.10-4.50); Lymphocytes Percent Auto 17.1 % (18.0-42.0); Mean Corpuscular HGB Conc 32.5 g/dL (32.0-36.0); Mean Corpuscular Hemoglobin 30.5 pg (27.0-31.0); Mean Corpuscular Volume 93.9 fL (78.0-102.0); Mean Platelet Volume 11.3 fl (9.2-11.8); Monocytes Absolute Auto 0.72 K/mm3 (0.10-0.90); Monocytes Percent Auto 7.9 % (2.0-11.0); Neutrophils Absolute Auto 6.7 K/mm3 (1.7-7.2); Platelet Count Result 288 K/mm3 (150-420); Red Blood Count 4.78 M/mm3 (4.20-5.40); Red Cell Distribution Width 12.7 % (11.6-14.4); White Blood Count 9.1 K/mm3 (4.8-10.8)
[2020-11-30 12:15] LABS: Add Urine Microscopic? YES; Appearance Urine Clear (Clear); Bilirubin Urine Negative (Negative); Blood Urine Negative (Negative); Color Urine Light Yellow (Yellow); Glucose Urine UA Negative (Negative); Ketones Urine Negative (Negative); Leukocyte Esterase Ur 1+ (Negative); Nitrate Urine Negative (Negative); Protein Urine Negative (Negative); Specific Grav Ur 1.015 (1.010-1.020); Urobilinogen Urine 0.2 mg/dL (0.2-1.0); pH Urine 6.5 (5.0-8.0)
[2020-11-30 12:28] LABS: Bacteria Urine None seen /hpf; RBC Urine 0-2 /hpf (0-2); Squamous Epithelial Cell Urine None seen /hpf (Few)
[2020-11-30 12:29] LABS: Alanine Aminotransferase 18 U/L (14-59); Albumin Level 3.7 g/dL (3.4-5.0); Alkaline Phosphatase 73 U/L (46-116); Anion Gap 10 mmol/L (8-16); Aspartate Amino Transferase 32 U/L (15-37); Bilirubin,Total 0.7 mg/dL (0.00-1.00); Blood Urea Nitrogen 12 mg/dL (7-18); CRP < 0.5 mg/dL (0.0-0.9); Calcium 8.7 mg/dL (8.5-10.1); Carbon Dioxide 24 mmol/L (21-32); Chloride 105 mmol/L (98-108); Estimated CRCL calculation 74 ml/min; Estimated Glomerular Filt Rate 58; Glucose 90 mg/dL (70-99); Osmolality Calculated 287 mOsm/kg (285-295); Potassium 5.6 mmol/L (3.5-5.1); Sodium 139 mmol/L (136-145); Total Protein 7.5 g/dL (6.4-8.2)
[2020-11-30 12:34] LABS: Lactic Acid Reflex 0.8 mmol/L (0.4-2.0)
[2020-11-30] MEDS: CIPROFLOXACIN 500 MG TAB PO (13:45)
[2020-11-30 13:50] VITALS: BP 166/99; PULSE 70; RESP 16; O2SAT 100
== END 2020-11-30 13:52 | disposition home or self-care (01) ==
PROVIDERS: Emergency Provider Emergency Medicine; PCP Internal Medicine
DX: N12 Tubulo-interstitial nephritis, not specified as acute or chronic (principal); E87.5 Hyperkalemia
CPT/HCPCS: 36415; 74177; 80053; 81001; 83605; 85025; 86140; 87040; 96374; 96375; 99283; 99284; A9270; J1170; J2405; Q9967

== ENCOUNTER 2021-06-10 16:37 | Outpatient (CLI) | payer MEDICAID, SELFPAY ==
[2021-06-10 16:56] LABS: Add Urine Microscopic? YES; Appearance Urine Clear (Clear); Basophils Absolute Auto 0.05 K/mm3 (0.00-0.10); Basophils Percent Auto 0.6 % (0.0-1.0); Bilirubin Urine Negative (Negative); Blood Urine Negative (Negative); Color Urine Light Yellow (Yellow); Eosinophils Absolute Auto 0.37 K/mm3 (0.02-0.50); Eosinophils Percent Auto 4.2 % (1.0-6.0); Glucose Urine UA Negative (Negative); Hematocrit 40.1 % (35.0-49.0); Hemoglobin 12.9 g/dL (12.0-15.0); Immature Granulocyte Absolute 0.03 K/mm3 (0.00-0.00); Immature Granulocyte Percent A 0.3 % (0.0-0.0); Ketones Urine Negative (Negative); Leukocyte Esterase Ur Trace (Negative); Lymphocytes Absolute Auto 2.53 K/mm3 (1.10-4.50); Lymphocytes Percent Auto 28.9 % (18.0-42.0); Mean Corpuscular HGB Conc 32.2 g/dL (32.0-36.0); Mean Corpuscular Hemoglobin 30.2 pg (27.0-31.0); Mean Corpuscular Volume 93.9 fL (78.0-102.0); Mean Platelet Volume 10.9 fl (9.2-11.8); Monocytes Absolute Auto 0.49 K/mm3 (0.10-0.90); Monocytes Percent Auto 5.6 % (2.0-11.0); Neutrophils Absolute Auto 5.3 K/mm3 (1.7-7.2); Neutrophils Percent Auto 60.4 % (50.0-70.0); Nitrate Urine Negative (Negative); Platelet Count Result 338 K/mm3 (150-420); Protein Urine Negative (Negative); Red Blood Count 4.27 M/mm3 (4.20-5.40); Red Cell Distribution Width 12.4 % (11.6-14.4); Specific Grav Ur 1.025 (1.010-1.020); Urobilinogen Urine 0.2 mg/dL (0.2-1.0); White Blood Count 8.8 K/mm3 (4.8-10.8)
[2021-06-10 17:02] LABS: Bacteria Urine Trace /hpf; RBC Urine None seen /hpf (0-2); Squamous Epithelial Cell Urine Few /hpf (Few); WBC Urine 0-3 /hpf (0-3)
[2021-06-10 17:20] LABS: Alanine Aminotransferase 32 U/L (14-59); Albumin Level 3.6 g/dL (3.4-5.0); Alkaline Phosphatase 75 U/L (46-116); Anion Gap 9 mmol/L (8-16); Aspartate Amino Transferase 17 U/L (15-37); Bilirubin,Total 0.4 mg/dL (0.00-1.00); Blood Urea Nitrogen 24 mg/dL (7-18); Calcium 8.3 mg/dL (8.5-10.1); Carbon Dioxide 26 mmol/L (21-32); Chloride 106 mmol/L (98-108); Creatine Kinase 265 U/L (26-192); Estimated Glomerular Filt Rate 53; Glucose 90 mg/dL (70-99); Magnesium 2.5 mg/dL (1.8-2.4); Osmolality Calculated 296 mOsm/kg (285-295); Phosphorus 3.3 mg/dL (2.6-4.7); Sodium 141 mmol/L (136-145); Thyroid Stimulating Hormone 4.53 uIU/mL (0.36-3.74); Total Protein 6.9 g/dL (6.4-8.2); Uric Acid 6.2 mg/dL (2.6-6.0)
[2021-06-10 17:34] LABS: CRP < 0.2 mg/dL (0.0-0.9)
== END 2021-06-10 16:38 | disposition home or self-care (01) ==
LOC: CHSLAB 16:39
PROVIDERS: PCP Internal Medicine; Visit Provider Internal Medicine
DX: M25.50 Pain in unspecified joint (principal); I10 Essential (primary) hypertension; R25.2 Cramp and spasm
CPT/HCPCS: 36415; 80053; 81001; 82550; 83735; 84100; 84443; 84550; 85025; 86038; 86140

== ENCOUNTER 2021-06-11 15:31 | Outpatient (CLI) | payer MEDICAID, SELFPAY ==
[2021-06-11 16:07] LABS: Calcium 8.5 mg/dL (8.5-10.1)
[2021-06-13 20:27] LABS: Ionized Calcium 4.9 mg/dL (4.8-5.6)
[2021-06-16 14:42] LABS: Parathyroid Intact 121 pg/mL (14-64)
[2021-06-17 14:27] LABS: Vitamin D 25 Hydroxy 8 ng/mL (30-100)
[2021-06-18 05:30] LABS: Aldolase 4.8 U/L (<=8.1)
== END 2021-06-11 15:32 | disposition home or self-care (01) ==
LOC: CHSLAB 15:33
PROVIDERS: PCP Internal Medicine; Visit Provider Internal Medicine
DX: E83.51 Hypocalcemia (principal); R79.89 Other specified abnormal findings of blood chemistry
CPT/HCPCS: 36415; 82085; 82306; 82310; 82330; 83970

== ENCOUNTER 2021-09-04 06:35 | Emergency (ER) | payer BC, SELFPAY ==
--- NOTE | ~2021-09-04 | CT_ITS ---
EXAMINATION: CT abdomen pelvis w con DATE: 09/04/2021 08:16 INDICATION: Abdomen pain. Left lower quadrant pain radiating to the back. Nausea and vomiting. Dysuri a. TECHNIQUE: Computed tomography (CT) of the abdomen and pelvis was performed without intravenous contr ast. The dose-length product was 1349.58 mGy-cm. Automated exposure control and iterative reconstruct ion technique were employed. COMPARISON: CT dated 11/30/2020. FINDINGS: Heart size normal. Small hiatal hernia. No significant vascular abnormality. No lymphadenop athy. No significant pleural or pericardial effusion. The spleen, pancreas, right adrenal gland are unremarkable. There is a low-density lesion left adrena l gland, likely benign adenoma measuring 1.6 cm. There is renal atrophy. There is fatty infiltration of the liver. Colonic diverticulosis without evidence for diverticulitis. Uterus is surgically absent . No abnormal pelvic masses or fluid collections. There is lumbar spondylosis most advanced at L5-S1. Gallbladder is present. No free air or free fluid. Small fat-containing umbilical hernia. Mild osteo arthritis of the hips. Normal appendix. IMPRESSION: 1. No acute abdominal abnormality. Reviewed, dictated and finalized at location A.
[2021-09-04 06:40] VITALS: BP 230/118; PULSE 82; RESP 20; TEMP 36.4; O2SAT 99
--- NOTE | 2021-09-04 07:07 | ED.ABDPAIN ---
HPI - Abdominal Pain General Chief Complaint: Abdominal Pain Stated Complaint: lower left side pain into back. Time Seen by Provider: 09/04/21 06:55 Source: patient Mode of arrival: ambulatory Limitations: no limitations History of Present Illness HPI narrative: 55 year old female presents to the Emergency Department complaining of left sided abdominal pain. Pain radiates to lower back. Onset yesterday. Has had vomiting but denies diarrhea, constipation or blood in stool. Has dysuria with some increased frequency and urgency. History of UTI and diverticulitis. Denies fever. BP elevated on arrival. Has been unable to keep her antihypertensive done. MD elicited complaint: abdominal pain Pertinent past history: diverticulitis and past UTI Onset (ago): day(s) (1) Pain Consistency: constant Location: LLQ and L flank Severity: moderate Quality: aching Radiation: LLQ and back Migration to: no migration Exacerbating factors: nothing Relieving factors: nothing Context: denies foreign travel, denies possible food poisoning, denies sick contacts, denies recent antibiotic use, denies recent surgery/procedure, denies recent injury or confirms history of similar episodes Associated symptoms: nausea, vomiting and dysuria Related Data Hx Last Menstrual Period: s/p hysterectomy Patient : No Home Medications Medication Instructions Recorded Confirmed duloxetine 20 mg capsule,delayed 20 mg PO DAILY 09/04/21 09/04/21 release ergocalciferol (vitamin D2) 1,250 1,250 mcg PO DAILY 09/04/21 09/04/21 mcg (50,000 unit) capsule lisinopril 20 1 tablet PO DAILY 09/04/21 09/04/21 mg-hydrochlorothiazide 25 mg tablet Allergies Allergy/AdvReac Type Severity Reaction Status Date / Time sumatriptan [From Imitrex] Allergy Severe Swelling Verified 12/29/20 14:21 of Lip/Tongue/Throat Sulfa (Sulfonamide Allergy Intermediate Joint Verified 12/29/20 14:21 Antibiotics) swelling hydrocodone Allergy Unknown Verified 12/29/20 14:21 SUMATRIPTAN SUCCINATE Allergy Severe CLOSED Uncoded 12/29/20 14:21 AIRWAY Review of Systems Review of Systems: HEENT: no headache, runny nose, sore throat, earache, neck pain Chest: no cough, shortness of breath, sputum production CV: no chest pain, diaphoresis Abd: left sided pain, nausea, vomiting, no diarrhea or constipation, no blood in stool Ext: good strength and tone, no cyanosis or edema, no numbness or tingling Back: low back pain Skin: no rashes or lesions Neuro: no numbness or tingling, no problems with gait, no headache All systems reviewed & are unremarkable except as noted in HPI and below Constitutional: Constitutional: Reports as per HPI, Reports no additional constitutional complaints and Denies fever(s) Eyes: Eyes: Reports as per HPI, Reports no additional eye complaints and Denies change in vision ENT: Reports system reviewed and no additional complaints, except as documented and Reports as per HPI Cardiovascular: Cardiovascular: Reports as per HPI, Reports no additional cardiovascular complaints and Denies chest pain Respiratory: Respiratory: Reports as per HPI, Reports no additional respiratory complaints, Denies cough and Denies dyspnea Gastrointestinal: Gastrointestinal: Reports as per HPI, Reports abdominal pain, Denies constipation, Denies diarrhea, Reports nausea and Reports vomiting Genitourinary: Genitourinary: Reports as per HPI, Denies hematuria, Reports nocturia, Reports dysuria and Reports flank pain Musculoskeletal: Musculoskeletal: Reports no additional musculoskeletal complaints and Reports as per HPI Integumentary/Breasts: Skin/Breast: Reports system reviewed and no additional complaints, except as docu and Reports as per HPI Neurologic: Reports system reviewed and no additional complaints, except as documented, Reports as per HPI, Denies headache(s), Denies focal weakness and Denies numbness Psychiatric: Psychiatric: Reports no additional psychiat
[2021-09-04 07:21] LABS: Basophils Absolute Auto 0.04 K/mm3 (0.00-0.10); Basophils Percent Auto 0.6 % (0.0-1.0); Eosinophils Absolute Auto 0.15 K/mm3 (0.02-0.50); Eosinophils Percent Auto 2.2 % (1.0-6.0); Hematocrit 44.1 % (35.0-49.0); Hemoglobin 14.7 g/dL (12.0-15.0); Immature Granulocyte Absolute 0.02 K/mm3 (0.00-0.00); Immature Granulocyte Percent A 0.3 % (0.0-0.0); Lymphocytes Percent Auto 22.3 % (18.0-42.0); Mean Corpuscular HGB Conc 33.3 g/dL (32.0-36.0); Mean Corpuscular Hemoglobin 30.6 pg (27.0-31.0); Mean Corpuscular Volume 91.7 fL (78.0-102.0); Mean Platelet Volume 10.7 fl (9.2-11.8); Monocytes Absolute Auto 0.44 K/mm3 (0.10-0.90); Monocytes Percent Auto 6.5 % (2.0-11.0); Neutrophils Absolute Auto 4.6 K/mm3 (1.7-7.2); Neutrophils Percent Auto 68.1 % (50.0-70.0); Platelet Count Result 361 K/mm3 (150-420); Red Blood Count 4.81 M/mm3 (4.20-5.40); Red Cell Distribution Width 12.6 % (11.6-14.4); White Blood Count 6.7 K/mm3 (4.8-10.8)
[2021-09-04 07:24] LABS: Appearance Urine Clear (Clear); Bilirubin Urine Negative (Negative); Color Urine Light Yellow (Yellow); Glucose Urine UA Negative (Negative); Ketones Urine Negative (Negative); Leukocyte Esterase Ur Negative LEU/UL (Negative); Nitrate Urine Negative (Negative); Protein Urine 1+ (Negative); Urobilinogen Urine 0.2 mg/dL (0.2-1.0)
[2021-09-04] MEDS: SODIUM CHLORIDE 0.9% IV 1,000 ML 999 ML IV CONT (07:36)
[2021-09-04] MEDS: fentaNYL CITRATE INJ (*CRX) 100 MCG/2 ML VIAL 50 MCG IV PUSH (07:37)
[2021-09-04] MEDS: ONDANSETRON INJ 4 MG/2 ML VIAL IV PUSH (07:38)
[2021-09-04 07:40] LABS: Lactic Acid Reflex 0.4 mmol/L (0.4-2.0)
[2021-09-04 07:43] LABS: Add Urine Microscopic? YES; Blood Urine Trace-Intact (Negative); RBC Urine 0-2 /hpf (0-2); WBC Urine 0-3 /hpf (0-3)
[2021-09-04 07:47] LABS: Squamous Epithelial Cell Urine Moderate /hpf (Few)
[2021-09-04 07:48] LABS: Bacteria Urine Trace /hpf
[2021-09-04 07:54] LABS: Alanine Aminotransferase 22 U/L (14-59); Albumin Level 3.6 g/dL (3.4-5.0); Alkaline Phosphatase 77 U/L (46-116); Anion Gap 9 mmol/L (8-16); Aspartate Amino Transferase 18 U/L (15-37); Bilirubin,Total 0.9 mg/dL (0.00-1.00); Blood Urea Nitrogen 17 mg/dL (7-18); Calcium 8.9 mg/dL (8.5-10.1); Carbon Dioxide 26 mmol/L (21-32); Chloride 102 mmol/L (98-108); Estimated CRCL calculation 67 ml/min; Estimated Glomerular Filt Rate 52; Glucose 103 mg/dL (70-99); Lipase 143 U/L (73-393); Osmolality Calculated 285 mOsm/kg (285-295); Potassium 3.6 mmol/L (3.5-5.1); Sodium 137 mmol/L (136-145); Total Protein 7.2 g/dL (6.4-8.2)
[2021-09-04 08:20] VITALS: BP 216/102; PULSE 63; RESP 20; O2SAT 97
[2021-09-04] MEDS: LABETALOL HCL 20 MG/4 ML SYRINGE (08:50)
[2021-09-04 09:03] VITALS: BP 179/108; PULSE 73; RESP 20; O2SAT 96
[2021-09-04 09:48] VITALS: BP 188/98; PULSE 72; RESP 20; TEMP 36.9; O2SAT 97
== END 2021-09-04 09:50 | disposition home or self-care (01) ==
PROVIDERS: Emergency Provider Emergency Medicine; PCP Internal Medicine
DX: R10.9 Unspecified abdominal pain (principal)
CPT/HCPCS: 36415; 74177; 80053; 81001; 83605; 83690; 85025; 96361; 96374; 96375; 99284; J2405; J3010; J7030; Q9967

== ENCOUNTER 2021-09-14 09:24 | Outpatient (CLI) | payer BC, SELFPAY ==
[2021-09-14 09:40] LABS: Add Urine Microscopic? YES; Appearance Urine Clear (Clear); Basophils Absolute Auto 0.02 K/mm3 (0.00-0.10); Basophils Percent Auto 0.3 % (0.0-1.0); Bilirubin Urine Negative (Negative); Blood Urine Negative (Negative); Color Urine Light Yellow (Yellow); Eosinophils Absolute Auto 0.15 K/mm3 (0.02-0.50); Glucose Urine UA Negative (Negative); Hemoglobin 13.8 g/dL (12.0-15.0); Immature Granulocyte Absolute 0.04 K/mm3 (0.00-0.00); Immature Granulocyte Percent A 0.5 % (0.0-0.0); Ketones Urine Negative (Negative); Leukocyte Esterase Ur Trace (Negative); Lymphocytes Absolute Auto 1.79 K/mm3 (1.10-4.50); Lymphocytes Percent Auto 23.9 % (18.0-42.0); Mean Corpuscular HGB Conc 32.1 g/dL (32.0-36.0); Mean Corpuscular Hemoglobin 30.4 pg (27.0-31.0); Mean Corpuscular Volume 94.7 fL (78.0-102.0); Mean Platelet Volume 10.6 fl (9.2-11.8); Monocytes Percent Auto 5.3 % (2.0-11.0); Neutrophils Absolute Auto 5.1 K/mm3 (1.7-7.2); Nitrate Urine Negative (Negative); Platelet Count Result 384 K/mm3 (150-420); Protein Urine Negative (Negative); Red Blood Count 4.54 M/mm3 (4.20-5.40); Red Cell Distribution Width 12.6 % (11.6-14.4); Urobilinogen Urine 0.2 mg/dL (0.2-1.0); White Blood Count 7.5 K/mm3 (4.8-10.8)
[2021-09-14 09:45] LABS: Bacteria Urine Trace /hpf; RBC Urine None seen /hpf (0-2); Squamous Epithelial Cell Urine Few /hpf (Few); WBC Urine 0-3 /hpf (0-3)
[2021-09-14 10:42] LABS: Alanine Aminotransferase 20 U/L (14-59); Albumin Level 3.3 g/dL (3.4-5.0); Alkaline Phosphatase 74 U/L (46-116); Anion Gap 7 mmol/L (8-16); Aspartate Amino Transferase 16 U/L (15-37); Bilirubin,Total 0.5 mg/dL (0.00-1.00); Blood Urea Nitrogen 24 mg/dL (7-18); CRP 1.7 mg/dL (0.0-0.9); Calcium 8.9 mg/dL (8.5-10.1); Carbon Dioxide 30 mmol/L (21-32); Chloride 106 mmol/L (98-108); Estimated Glomerular Filt Rate 43; Glucose 93 mg/dL (70-99); Osmolality Calculated 300 mOsm/kg (285-295); Potassium 4.5 mmol/L (3.5-5.1); Sodium 143 mmol/L (136-145); Thyroid Stimulating Hormone 4.35 uIU/mL (0.36-3.74); Total Protein 7.1 g/dL (6.4-8.2)
[2021-09-22 22:40] LABS: ANCA Screen Negative (Negative)
== END 2021-09-14 09:25 | disposition home or self-care (01) ==
LOC: CHSLAB 09:28
PROVIDERS: PCP Internal Medicine; Visit Provider Internal Medicine
DX: M31.0 Hypersensitivity angiitis (principal); I10 Essential (primary) hypertension
CPT/HCPCS: 36415; 80053; 81001; 84443; 85025; 86036; 86038; 86140

== ENCOUNTER 2021-12-03 10:59 | Outpatient (CLI) | payer BC, SELFPAY ==
[2021-12-05 10:54] LABS: TB Skin Test Erythema 0 mm; TB Skin Test Induration 0 mm (0-10); TB Skin Test Interpretation Negative (Negative); TB Skin Test Site Left Arm
== END 2021-12-03 11:00 | disposition home or self-care (01) ==
LOC: CHSLAB 11:01
PROVIDERS: PCP Internal Medicine; Visit Provider Internal Medicine
DX: Z11.1 Encounter for screening for respiratory tuberculosis (principal)
CPT/HCPCS: 36415; 86580

== ENCOUNTER 2022-01-01 15:29 | Outpatient (CLI) | payer BC, SELFPAY ==
[2022-01-01 16:55] LABS: Influenza A QL RT-PCR Negative (Negative); Influenza B QL RT-PCR Negative (Negative); SARS-CoV-2 RNA PCR Positive (Negative)
[2022-01-01 16:56] LABS: RSV RNA, RT-PCR Negative (Negative)
== END 2022-01-01 15:30 | disposition home or self-care (01) ==
LOC: CHSLAB 15:35
PROVIDERS: PCP Internal Medicine; Visit Provider Internal Medicine
DX: U07.1 COVID-19 (principal); R05.9 Cough, unspecified
CPT/HCPCS: 87637

== ENCOUNTER 2022-02-15 15:23 | Outpatient (CLI) | payer BC, SELFPAY ==
--- NOTE | ~2022-02-15 | XR_ITS ---
EXAM: XR knee RT 3V DATE: 02/15/2022 16:29 HISTORY: PAIN X 2 MONTHS/NO INJURY . COMPARISON: 11/18/2020. FINDINGS: Normal mineralization. No fracture or dislocation. No lytic or blastic lesion. Mild medial and lateral joint space narrowing. Tricompartmental osteophytosis, moderate in the lateral compartme nt. Chondrocalcinosis. No erosion or periosteal change. Soft tissues within normal limits. IMPRESSION: No acute osseous finding in the right knee. Moderate right knee arthritis. Reviewed, dictated and finalized at location K. SIFIED AD CLERK IMPRESSION: No acute osseous finding in the right knee. Moderate right knee art hritis.
== END 2022-02-15 15:24 | disposition home or self-care (01) ==
LOC: CHSIMG 15:25
PROVIDERS: PCP Internal Medicine; Visit Provider Family Medicine
DX: M25.561 Pain in right knee (principal); M17.11 Unilateral primary osteoarthritis, right knee
CPT/HCPCS: 73562

== ENCOUNTER 2022-05-17 16:05 | Outpatient (CLI) | payer BC, SELFPAY ==
[2022-05-17 16:21] LABS: Basophils Absolute Auto 0.03 K/mm3 (0.00-0.10); Basophils Percent Auto 0.4 % (0.0-1.0); Eosinophils Absolute Auto 0.25 K/mm3 (0.02-0.50); Hematocrit 39.4 % (35.0-49.0); Hemoglobin 13.1 g/dL (12.0-15.0); Immature Granulocyte Absolute 0.02 K/mm3 (0.00-0.00); Immature Granulocyte Percent A 0.2 % (0.0-0.0); Lymphocytes Absolute Auto 1.03 K/mm3 (1.10-4.50); Lymphocytes Percent Auto 12.5 % (18.0-42.0); Mean Corpuscular HGB Conc 33.2 g/dL (32.0-36.0); Mean Corpuscular Hemoglobin 30.5 pg (27.0-31.0); Mean Corpuscular Volume 91.6 fL (78.0-102.0); Mean Platelet Volume 10.3 fl (9.2-11.8); Monocytes Absolute Auto 0.67 K/mm3 (0.10-0.90); Monocytes Percent Auto 8.1 % (2.0-11.0); Neutrophils Absolute Auto 6.3 K/mm3 (1.7-7.2); Neutrophils Percent Auto 75.8 % (50.0-70.0); Platelet Count Result 298 K/mm3 (150-420); Red Cell Distribution Width 12.6 % (11.6-14.4); White Blood Count 8.3 K/mm3 (4.8-10.8)
[2022-05-17 16:47] LABS: Alanine Aminotransferase 23 U/L (14-59); Alkaline Phosphatase 77 U/L (46-116); Anion Gap 10 mmol/L (8-16); Aspartate Amino Transferase 24 U/L (15-37); Bilirubin,Total 0.5 mg/dL (0.00-1.00); Blood Urea Nitrogen 22 mg/dL (7-18); Calcium 8.8 mg/dL (8.5-10.1); Carbon Dioxide 28 mmol/L (21-32); Chloride 107 mmol/L (98-108); Estimated Glomerular Filt Rate 48; Glucose 96 mg/dL (70-99); Osmolality Calculated 303 mOsm/kg (285-295); Potassium 3.8 mmol/L (3.5-5.1); Sodium 145 mmol/L (136-145); Total Protein 7.2 g/dL (6.4-8.2)
[2022-05-17 16:56] LABS: Strep Group A RT-PCR NOT DETECTED (Negative)
[2022-05-17 17:06] LABS: Influenza A QL RT-PCR Negative (Negative); Influenza B QL RT-PCR Negative (Negative); SARS-CoV-2 RNA PCR Negative (Negative)
== END 2022-05-17 16:06 | disposition home or self-care (01) ==
LOC: CHSLAB 16:06
PROVIDERS: PCP Internal Medicine; Visit Provider Internal Medicine
DX: J06.9 Acute upper respiratory infection, unspecified (principal); I10 Essential (primary) hypertension; Z20.822 Contact with and (suspected) exposure to COVID-19
CPT/HCPCS: 36415; 80053; 83735; 85025; 87636; 87651

== ENCOUNTER 2023-01-11 08:28 | Emergency (ER) | payer BC, SELFPAY ==
--- NOTE | ~2023-01-11 | CT_ITS ---
CT of the Abdomen and Pelvis: Indication: Left upper quadrant pain Technique: 2.5 mm axial scans were obtained through the abdomen and pelvis following intravenous adm inistration of 100 cc of Omnipaque 350. Dose reduction technique was used on this scan by utilizing a utomated exposure control and iterative reconstruction technique. The dose-length product (DLP) was 1 376.62 mGy-cm. COMPARISON: 09/04/2021 Findings: Scans through the lung bases are unremarkable. Diffuse hepatic steatosis noted. The spleen, pancreas, gallbladder, right adrenal gland, and kidneys are within normal limits. Stable small left adrenal nodule. No evidence of aortic aneurysm. No lymph adenopathy. No bowel obstruction or bowel wall thickening. There is no evidence to suggest acute appendicitis. Images through the pelvis were performed. Urinary bladder unremarkable. No pelvic mass seen. No ascit es. Impression: Diffuse fatty infiltration of the liver. Stable indeterminate left adrenal nodule. Stability suggests benignity. Reviewed, dictated and finalized at [facility]. O JOURNALIST Impression: Diffuse fatty infiltration of the liver. Stable indeterminate left adrenal nodule. Stability suggests benignity.
[2023-01-11 08:48] VITALS: BP 127/80; PULSE 87; RESP 20; TEMP 36.3; O2SAT 99
[2023-01-11 08:54] LABS: Appearance Urine Clear (Clear); Bilirubin Urine Negative (Negative); Blood Urine Negative (Negative); Color Urine Light Yellow (Yellow); Glucose Urine UA Negative (Negative); Ketones Urine Negative (Negative); Leukocyte Esterase Ur 1+ (Negative); Nitrate Urine Negative (Negative); Protein Urine Negative (Negative); Specific Grav Ur 1.025 (1.010-1.020); Urobilinogen Urine 0.2 mg/dL (0.2-1.0)
[2023-01-11 09:06] LABS: Add Urine Microscopic? YES; RBC Urine None seen /hpf (0-2); Squamous Epithelial Cell Urine Few /hpf (Few)
[2023-01-11 09:07] LABS: Bacteria Urine Trace /hpf
[2023-01-11 09:23] LABS: Influenza A QL RT-PCR Negative (Negative); Influenza B QL RT-PCR Negative (Negative); RSV RNA, RT-PCR Negative (Negative); SARS-CoV-2 RNA PCR Negative (Negative)
--- NOTE | 2023-01-11 09:50 | ED.GENADULT ---
HPI - General Adult General Chief complaint: Abdominal Pain Stated complaint: abdominal pain Time Seen by Provider: 01/11/23 09:15 History of Present Illness HPI narrative: 57yo woman presents with nausea, vomiting, watery diarrhea, and left-sided abdominal aching for the past 1-2 days. +fever last night. No blood. Related Data Home Medications Medication Instructions Recorded Confirmed duloxetine 20 mg capsule,delayed 20 mg PO DAILY 09/04/21 09/04/21 release ergocalciferol (vitamin D2) 1,250 1,250 mcg PO DAILY 09/04/21 09/04/21 mcg (50,000 unit) capsule lisinopril 20 1 tablet PO DAILY 09/04/21 09/04/21 mg-hydrochlorothiazide 25 mg tablet Allergies Allergy/AdvReac Type Severity Reaction Status Date / Time sumatriptan [From Imitrex] Allergy Severe Swelling Verified 01/11/23 08:47 of Lip/Tongue/Throat Sulfa (Sulfonamide Allergy Intermediate Joint Verified 01/11/23 08:47 Antibiotics) swelling hydrocodone Allergy Unknown Verified 01/11/23 08:47 SUMATRIPTAN SUCCINATE Allergy Severe CLOSED Uncoded 12/29/20 14:21 AIRWAY Review of Systems Review of Systems: All systems reviewed & are unremarkable except as noted in HPI and below Constitutional: Constitutional: Reports fever(s) ENT: Denies dysphagia Cardiovascular: Cardiovascular: Denies chest pain Respiratory: Respiratory: Denies dyspnea PMFSH Past Medical History Medical History Chronic renal failure Diverticulitis HTN (hypertension) Migraines UTI (urinary tract infection) Surgical History Surgical History H/O sinus surgery History of History of carpal tunnel surgery History of hysterectomy Perirectal fistula x 2 Family History Family History Mother Hypertension Father Family history of congestive heart failure Grandparent Hypertension Other Diabetes mellitus Social History Social History Smoking status: Former smoker Second hand tobacco smoke exposure: No Smoking end date: 02/14/06 Alcohol intake: never Substance use: never Substance use type: does not use Living arrangements: with family Gender identity (if verbalized by the patient): Female Sexual Orientation (if Verbalized by the Patient): Straight or Heterosexual Spiritual care concerns: No Exam Const: General: healthy appearing and no acute distress Nutritional Appearance: well nourished Orientation/consciousness: patient oriented x3 Eyes: Conjunctivae: conjunctivae normal Resp: Effort & Inspection: normal respiratory effort and not labored Cardio: Rate: regular rate GI: Inspection: non-distended GI Palp: Yes Soft to palpation and No Tenderness to palpation present (GI) Skin: General skin exam: normal color, no jaundice and no pallor Extrem: General: no clubbing, cyanosis or edema Course Vital Signs Vital signs: Vital Signs Temperature 36.3 C L 01/11/23 08:48 Pulse Rate 87 01/11/23 08:48 Respiratory Rate 20 01/11/23 08:48 Blood Pressure 127/80 01/11/23 08:48 Pulse Oximetry 99 01/11/23 08:48 Oxygen Delivery Room Air 01/11/23 08:48 Temperature 36.3 C L 01/11/23 08:48 Pulse Rate 87 01/11/23 08:48 Respiratory Rate 20 01/11/23 08:48 Blood Pressure 127/80 01/11/23 08:48 Pulse Oximetry 99 01/11/23 08:48 Oxygen Delivery Room Air 01/11/23 08:48 Medical Decision Making MDM Narrative Medical decision making narrative: nausea, diarrhea, fever DDx gastroenteritis, colitis/diverticulitis, no evidence of bleeding Vital Signs Vital Signs: Vital Signs Temperature 36.3 C L 01/11/23 08:48 Pulse Rate 87 01/11/23 08:48 Respiratory Rate 20 01/11/23 08:48 Blood Pressure 127/80 01/11/23 08:48 Pulse Oximetry 99 01/11/23 08:
[2023-01-11] MEDS: LACTATED RINGERS 1,000 ML 999 ML IV CONT (10:03)
[2023-01-11] MEDS: ONDANSETRON INJ 4 MG/2 ML VIAL IV PUSH (10:05)
[2023-01-11] MEDS: KETOROLAC 30 MG/ML VIAL (*BKC) IV PUSH (10:06)
[2023-01-11] MEDS: diphenhydrAMINE HCl INJ 50 MG/ML VIAL 25 MG IV PUSH (10:07)
[2023-01-11 10:10] LABS: Basophils Absolute Auto 0.02 K/mm3 (0.00-0.10); Basophils Percent Auto 0.2 % (0.0-1.0); Eosinophils Absolute Auto 0.24 K/mm3 (0.02-0.50); Eosinophils Percent Auto 2.7 % (1.0-6.0); Hematocrit 41.5 % (35.0-49.0); Hemoglobin 13.8 g/dL (12.0-15.0); Immature Granulocyte Absolute 0.03 K/mm3 (0.00-0.00); Immature Granulocyte Percent A 0.3 % (0.0-0.0); Lymphocytes Percent Auto 12.4 % (18.0-42.0); Mean Corpuscular HGB Conc 33.3 g/dL (32.0-36.0); Mean Corpuscular Hemoglobin 30.9 pg (27.0-31.0); Mean Platelet Volume 10.5 fl (9.2-11.8); Monocytes Absolute Auto 0.72 K/mm3 (0.10-0.90); Monocytes Percent Auto 8.1 % (2.0-11.0); Neutrophils Absolute Auto 6.8 K/mm3 (1.7-7.2); Neutrophils Percent Auto 76.3 % (50.0-70.0); Platelet Count Result 318 K/mm3 (150-420); Red Blood Count 4.46 M/mm3 (4.20-5.40); Red Cell Distribution Width 12.4 % (11.6-14.4); White Blood Count 8.9 K/mm3 (4.8-10.8)
[2023-01-11 10:13] VITALS: BP 133/90; PULSE 63; RESP 16; O2SAT 98
[2023-01-11 10:30] LABS: Lactic Acid Reflex 0.9 mmol/L (0.4-2.0)
[2023-01-11 10:37] LABS: Alanine Aminotransferase 33 U/L (14-59); Albumin Level 3.2 g/dL (3.4-5.0); Alkaline Phosphatase 64 U/L (46-116); Anion Gap 5 mmol/L (8-16); Aspartate Amino Transferase 23 U/L (15-37); Bilirubin,Total 0.5 mg/dL (0.00-1.00); Blood Urea Nitrogen 15 mg/dL (7-18); Calcium 8.8 mg/dL (8.5-10.1); Carbon Dioxide 32 mmol/L (21-32); Chloride 104 mmol/L (98-108); Estimated CRCL calculation 63 ml/min; Estimated Glomerular Filt Rate 49; Glucose 107 mg/dL (70-99); Lipase 42 U/L (16-77); Magnesium 2.1 mg/dL (1.8-2.4); Osmolality Calculated 292 mOsm/kg (285-295); Potassium 3.8 mmol/L (3.5-5.1); Sodium 141 mmol/L (136-145); Total Protein 6.9 g/dL (6.4-8.2)
[2023-01-11 10:45] VITALS: BP 136/70; PULSE 74; RESP 16; O2SAT 97
[2023-01-11 11:38] VITALS: BP 127/73; PULSE 72; RESP 16; TEMP 36.7; O2SAT 98
== END 2023-01-11 12:03 | disposition home or self-care (01) ==
PROVIDERS: Family Medicine; Emergency Provider Emergency Medicine; PCP Internal Medicine
DX: K52.9 Noninfective gastroenteritis and colitis, unspecified (principal); I12.9 Hypertensive chronic kidney disease with stage 1 through stage 4 chronic kidney disease, or unspecified chronic kidney disease; N18.9 Chronic kidney disease, unspecified; Z87.891 Personal history of nicotine dependence; Z20.822 Contact with and (suspected) exposure to COVID-19
CPT/HCPCS: 36415; 74177; 80053; 81001; 83605; 83690; 83735; 85025; 87637; 96361; 96374; 96375; 99284; J1200; J1885; J2405; J7120; Q9967

== ENCOUNTER 2024-05-20 08:09 | Emergency (ER) | payer OTHER, MEDICAID, SELFPAY ==
--- NOTE | ~2024-05-20 | XR_ITS ---
XR chest 2V Ordering provider: Demarcus Vergara MD History: 58 years Female with . sob/cough x5 days . Comparison: January 20, 2020 FINDINGS: MEDIASTINUM: The cardiac silhouette is not enlarged. LUNGS: No infiltrates, effusions or pneumothorax. OTHER: No free air under the diaphragm. Degenerative changes of the spine. IMPRESSION: No acute cardiopulmonary pathology. Reviewed, dictated and finalized at location A.
[2024-05-20 08:10] VITALS: BP 154/92; PULSE 90; RESP 18; TEMP 35.9; O2SAT 99
--- OUTSIDE RECORDS SUMMARY | 2024-05-20 08:11 | XMS_ITS ---
Author Organization Unknown Address [id number] [place] [address] [phone] Phone Care Team Providers Care Lunchroom Attendant Name Role Phone AC ROBINS Attending Unavailable JONO FRANCES Primary Unavailable Immunization Immunization Date Status Additional Notes Code Code System Influenza, split virus, trivalent, preservative 11/14/2017 Completed 141 CVX Social History Type Status Start Date End Date Code Code Syst em Smoking History Former smoker [id number] SNOMED CT Sex Female Hospital Discharge Instructions Should you have any questions prior to discharge, please contact a member of your healthcare team. If you have left the hospital and have any questions, please contact your primary care physician. Reason For Referral No Data Found Plan of Treatment Stress Test Treadmill 11/30/2022 Home Sleep Study Prep (40572) 3 Encounters Encounter Diagnosis Start Date Code Code Sys tem Drowsy 12/21/2022 [id number] SNOMED-CT Personal Care Team Section Performer Name Performer Role Active Date Inactive Da JUAN DANIEL [place] PCP - Primary care physician 2022-09-28
--- OUTSIDE RECORDS SUMMARY | 2024-05-20 08:11 | XMS_ITS | Clinical Summary ---
Author Organization [facility] Address [address] [place] [address] Care Team Providers Care Cleaner Industrial Name Role Phone Luís Villalta MD Primary Care Provider [phone] Allergies Active Allergy Reactions Criticality Noted Date Comments Hydrocodone Other (see comment) 09/13/2021 nightmares Sumatriptan Anaphylaxis High 09/13/2021 Sulfa Antibiotics Joint Pain 09/13/2021 Medications Vitamin D3 (VITAMIN D) 50 mcg tablet Unsure of dose but takes one time a week on wednesdays. Active doxepin (SINEQUAN) 25 MG capsule Take 1 capsule (25 mg total) by mouth nightly at bedtime. Active DULoxetine (CYMBALTA) 30 MG capsule Take 1 capsule (30 mg total) by mouth daily. Active felodipine ER 10 MG TABLET SR 24 HR 24 hr tablet Take 1 tablet by mouth every morning. Active felodipine ER 10 MG TABLET SR 24 HR 24 hr tablet Take 2 tablets by mouth every evening. Active losartan 50 MG TABS 100 mg, hydroCHLOROthiazide 25 MG TABS 25 mg Take by mouth daily. Active Active Problems No known active problems Social History Tobacco Use Types Packs/Day Years Used Date Smoking Tobacco: Former Smokeless Tobacco: Never Alcohol Use Standard Drinks/Week Comments Never 0 (1 standard drink = 0.6 oz pur e alcohol) Comments No Sex and Gender Information Value Date Recorded Sex Assigned at Not on file Legal Sex Female 5:50 PM CDT Gender Identity Not on file Sexual Orientation Not on file Last Filed Vital Signs Vital Sign Reading Time Taken Comments Blood Pressure 136/90 06/11/2023 10:08 AM CDT Pulse 78 06/11/2023 10:08 AM CDT Temperature 35.8 C (96.5 F) 06/11/2023 10:08 AM CDT Respiratory Rate 18 06/11/2023 10:0 8 AM CDT Oxygen Saturation 98% 06/11/2023 10: 08 AM CDT Inhaled Oxygen Concentration - - Weight 102.5 kg (225 lb 15.5 oz) 2023 10:08 AM CDT Height 175.3 cm (5' 9 ) 06/11/2023 10:0 8 AM CDT Body Mass Index 33.37 06/11/2023 10:08 AM CDT Plan of Treatment Health Maintenance Due Date Last Done Comments Colorectal Cancer Screening Colonoscopy (10 Years) 1966 Annual Physical 1969 Hepatitis C 1984 DTaP, Tdap and Td Vaccines ( 1 - Tdap) 1985 Hepatitis B Vaccines (1 of 3 - 19+ 3-dose series) 1985 Mammogram Screening 2006 Zoster Vaccines (1 of 2) 2016 COVID-19 Vaccine ( - 2023-2 5 season) 2023 Meningococcal B Vaccine Aged Out No l onger eligible based on patient's age to complete this topic Meningococcal Vaccine Aged Out No umm bernard eligible based on patient's age to complete this topic Pneumococcal Vaccine: Pediat rics (0 to 5 Years) and At-Risk Patients (6 to 64 Years) Aged Out No longer eligible b ased on patient's age to complete this topic RSV Immunizations Under 20 Months Aged Out No longer eligible based on patient's age to complete this topic Insurance [facility] C/O PROVIDER SERVICES AMELIE JOHNSON [id number] Care Teams Cleaner Industrial Relationship Specialty Start Date End Date Luís Villalta MD [address] [place] [address] PCP - General INTERNAL MEDICINE 09/13/21
--- OUTSIDE RECORDS SUMMARY | 2024-05-20 08:11 | XMS_ITS | Clinical Summary ---
Author Organization [facility] Address [address] [place] [address] Phone Care Team Providers Care Nitrating Acid Mixer Name Role Phone Provider, Unknown Primary Care Provider Unavaila ble Allergies Active Allergy Reactions Criticality Noted Date Comments Sumatriptan Anaphylaxis 03/24/2018 Sulfa Antibiotics Swelling 03/24/2018 Swelling in the joints Medications No known medications Active Problems No known active problems Immunizations Immunization Administration Dates Next Due Influenza Vaccine greater than 3 yrs 11/14/2017 Family History Medical History Relation Name Comments Congestive Heart Failure Father Relation Name Status Comments Father Mother Alive Social History Tobacco Use Types Packs/Day Years Used Date Smoking Tobacco: Former Cigarettes Smokeless Tobacco: Never Comments:quit 10 years ago Alcohol Use Standard Drinks/Week Comments No 0 (1 standard drink = 0.6 oz pur e alcohol) Comments No Sex and Gender Information Value Date Recorded Sex Assigned at Not on file Legal Sex Female 8:46 AM CHIEF TECHNOLOGIST Gender Identity Not on file Sexual Orientation Not on file Last Filed Vital Signs Vital Sign Reading Time Taken Comments Blood Pressure 142/106 03/24/2018 9:28 AM CHIEF TECHNOLOGIST Pulse 89 03/24/2018 9:28 AM CHIEF TECHNOLOGIST Temperature 37 C (98.6 F) 03/24/2018 9:28 AM CHIEF TECHNOLOGIST Respiratory Rate 16 03/24/2018 9:28 AM CHIEF TECHNOLOGIST Oxygen Saturation 97% 03/24/2018 9:28 AM CHIEF TECHNOLOGIST Inhaled Oxygen Concentration - - Weight 107.5 kg (237 lb) 03/24/2018 9:28 AM CHIEF TECHNOLOGIST Height 175.3 cm (5' 9 ) 03/24/2018 9:28 AM CHIEF TECHNOLOGIST Body Mass Index 35 03/24/2018 9:28 AM CHIEF TECHNOLOGIST Plan of Treatment Health Maintenance Due Date Last Done Comments Hepatitis C Virus (HCV) Screening 1966 TdaP Immunization 1966 Hepatitis B Immunization (1 of 3 - 19+ 3-dose series) 1985 Colonoscopy 11/29/2011 Colorectal Cancer Screening 11/29/2011 Cologuard 2016 Immunochemical Fecal Occult Blood 2016 Mammogram 2016 Pneumococcal Immunization (5 0+ years) (1 of 1 - PCV) 2016 Zoster Immunization (1 of 2) 2016 Influenza Immunization (#1) 2023 11/14/2017 SARS-COV-2 Immunization (1 - 2023- season) 2023 Respiratory Syncytial Virus (RSV) Immunization (Adult) (1 - 1-dose 75+ series) 2041 Meningococcal Immunization (ACWY) Aged Out No longer eligible based on patient's age to complete this topic Pneumococcal Immunization Combined Aged Out No longer eligible based on patient's age to complete this topic Rotavirus Immunization Aged Out No lo nger eligible based on patient's age to complete this topic Insurance [facility] Care Teams Nitrating Acid Mixer Relationship Specialty Start Date End Date Provider, Unknown UNKNOWN PCP - General 03/24/18
--- NOTE | 2024-05-20 08:14 | PC.NURSE ---
covid swab sent to lab
--- NOTE | 2024-05-20 08:19 | ED.URI ---
HPI - URI/Sore Throat General Chief Complaint: Upper Respiratory Infection Stated Complaint: cough headache Time Seen by Provider: 05/20/24 08:19 Source: patient Mode of arrival: ambulatory Limitations: no limitations History of Present Illness HPI Narrative: patient is a 58-year-old female with cough and congestion of the chest and face. She has been sick for the past 3 days. Minimal shortness of breath. No chest pain. MD elicited complaint: fever, cough, sore throat, rhinorrhea, nasal congestion and sinus pain Pertinent past history: other ( Hypertension) Onset (ago): day(s) ( 3) Consistency: constant Severity: moderate Pain scale (0-10): 2 Description of mucous: watery, yellow and green Able to tolerate fluids by mouth: Yes Exacerbating factors: nothing Relieving factors: nothing Context: other ( patient has been getting facial pain and pressure with chest congestion and minimal shortness breath over the past 3 days) Associated symptoms: fever, nasal congestion, sore throat, cough and ear pain Treatments prior to arrival: acetaminophen and ibuprofen Related Data Home Medications ?Medication ?Instructions ?Recorded ?Confirmed ?Last Taken ?Type duloxetine 20 mg capsule,delayed 20 mg PO DAILY 09/04/21 09/04/21 Unknown History release ergocalciferol (vitamin D2) 1,250 1,250 mcg PO DAILY 09/04/21 09/04/21 Unknown History mcg (50,000 unit) capsule lisinopril 20 1 tablet PO DAILY 09/04/21 09/04/21 Unknown History mg-hydrochlorothiazide 25 mg tablet Allergies Allergy/AdvReac Type Severity Reaction Status Date / Time sumatriptan (From Imitrex) Allergy Severe Swelling Verified 05/20/24 08:17 of Lip/Tongue/Throat Sulfa (Sulfonamide Allergy Intermediate Joint Verified 05/20/24 08:17 Antibiotics) swelling hydrocodone Allergy Unknown Verified 05/20/24 08:17 SUMATRIPTAN SUCCINATE Allergy Severe CLOSED Uncoded 05/20/24 08:17 AIRWAY Review of Systems Review of Systems: All systems reviewed & are unremarkable except as noted in HPI and below Constitutional: Constitutional: Reports no additional constitutional complaints Eyes: Eyes: Reports no additional eye complaints ENT: Reports system reviewed and no additional complaints, except as documented Cardiovascular: Cardiovascular: Reports no additional cardiovascular complaints Respiratory: Respiratory: Reports no additional respiratory complaints Gastrointestinal: Gastrointestinal: Reports no additional gastrointestinal complaints Genitourinary: Genitourinary: Reports no additional female genitourinary complaints Musculoskeletal: Musculoskeletal: Reports no additional musculoskeletal complaints Integumentary/Breasts: Skin/Breast: Reports system reviewed and no additional complaints, except as docu Neurologic: Reports system reviewed and no additional complaints, except as documented Psychiatric: Psychiatric: Reports no additional psychiatric complaints Endocrine: Endocrine: Reports no additional endocrine complaints Hematologic/Lymphatic: Hematologic/Lymphatic: Reports no additional hematologic/lymphatic complaints Allergic/Immunologic: Allergic/Immunologic: Reports no additional allergic/immunologic complaints PMFSH Past Medical History Medical History UTI (urinary tract infection) Diverticulitis HTN (hypertension) Chronic renal failure Migraines Surgical History Surgical History History of hysterectomy H/O sinus surgery History of History of carpal tunnel surgery Perirectal fistula x 2 Family History Family History Mother Hypertension Father Family history of congestive heart failure Grandparent Hypertension Other Diabetes mellitus Social History Social History Smoking status: Former smoker Second hand tobacco smoke exposure: No Smoking end date: 02/14/06 Alcohol intake: never Substance use: never Substance use type: does not use Living arrangements: with family Gender identity (if verbalized by the patient): Female Sexual Orientation (if Verbalized by the Patient): Straight or Heterosexual Spiritual care concerns: No Exam Const: General: ill appearing Nutritional Appearance: well nourished Orientation/consciousness: patient oriented x3 Limitations: no limitations HENMT: Head: normal to inspection Ears: external ears normal Face/Nose/Sinus: Normal external nose present Eyes: Conjunctivae: conjunctivae normal Pupils: Equal, round and reactive pupils present EOM: EOMs intact bilaterally Other: tender maxillary sinus palpation bilateral Neck: Neck: normal visual inspection Chest: Chest palpation & inspection: normal inspection of the chest Resp: Effort & Inspection: normal respiratory effort, not labored, no retractions, not tachypneic and no use of accessory muscles Auscultation: clear to auscultation bilaterally, no crackles, no rales, no rhonchi, no wheezes, breath sounds present and diminished lung sounds Cardio: Rate: regular rate Rhythm: regular rhythm Heart sounds: no murmurs GI: Inspection: non-distended GI Palp: Yes Soft to palpation and No Tenderness to palpation present (GI) Auscultation: normal bowel sounds : General: Yes bladder normal to palpation Back/Spine/Pelvis: Back: no CVA tenderness Skin: General skin exam: normal color Rashes: no rashes Wounds: no wounds Neuro: General: patient oriented x3 Cranial nerves: Yes Nystagmus not present Speech: normal speech Gait exam (Neuro): Normal gait present Extrem: General: normal to inspection Psych: Mental Status: mental status grossly normal Affect: normal affect Attitude: cooperative Course Vital Signs Vital signs: Vital Signs Temperature 35.9 C L 05/20/24 08:10 Pulse Rate 90 05/20/24 08:10 Respiratory Rate 18 05/20/24 08:10 Blood Pressure 154/92 H 05/20/24 08:10 Pulse Oximetry 99 05/20/24 08:10 Oxygen Delivery Room Air 05/20/24 08:10 Temperature 35.9 C L 05/20/24 08:10 Pulse Rate 90 05/20/24 08:10 Respiratory Rate 18 05/20/24 08:10 Blood Pressure 154/92 H 05/20/24 08:10 Pulse Oximetry 99 05/20/24 08:10 Oxygen Delivery Room Air 05/20/24 08:10 MDM - URI/Sore Throat MDM Narrative Medical decision making narrative: patient is a 58-year-old female with upper respiratory complaints at this time for the past 3 days. We will do COVID panel and strep and chest x-ray. Lab Data Attestation: I reviewed the patient's lab results. Lab results narrative: COVID panel was negative strep testing was negative Imaging Data Attestation: I personally reviewed and interpreted this imaging study as follows: Radiologist's impression: chest x-ray is negative for acute process Discharge Plan Discharge Clinical Impression: Sinusitis Qualifiers: Sinusitis location: maxillary Chronicity: acute Recurrence: non-recurrent Qualified Code(s): J01.00 - Acute maxillary sinusitis, unspecified Acute bronchitis Qualifiers: Bronchitis organism: unspecified organism Qualified Code(s): J20.9 - Acute bronchitis, unspecified Patient Disposition: Acute Care Hospital Condition: Stable Patient Language: Georgian Prescriptions: New prednisone 20 mg tablet 40 mg PO DAILY 3 Days Qty: 6 0RF amoxicillin-pot clavulanate 875-125 mg tablet 1 tablet PO BID 10 Days Qty: 20 0RF No Action lisinopril-hydrochlorothiazide 20-25 mg tablet 1 tablet PO DAILY ergocalciferol (vitamin D2) 1,250 mcg (50,000 unit) capsule 1,250 mcg PO DAILY duloxetine 20 mg capsule,delayed release(DR/EC) 20 mg PO DAILY phenazopyridine [Pyridium] 200 mg tablet 200 mg PO TID PRN (Reason: pain) Qty: 10 0RF ketorolac 10 mg tablet 10 mg PO Q6H PRN (Reason: pain) Qty: 20 0RF cephalexin 500 mg capsule 500 mg PO TIDWMEAL Qty: 10 0RF ondansetron 4 mg tablet,disintegrating 4 mg PO Q6H PRN (Reason: nausea and vomiting) Qty: 20 0RF promethazine 25 mg tablet 25 mg PO Q6H PRN (Reason: nausea and vomiting) Qty: 20 0RF Follow-up/Referrals: Luís Villalta MD [Primary Care Provider] - Time of Disposition: 09:32
--- OUTSIDE RECORDS SUMMARY | 2024-05-20 08:50 | XMS_ITS | Clinical Summary ---
Author Organization [facility] Address [address] [place] [address] Care Team Providers Care Wedding Makeup Artist Name Role Phone Luís Villalta MD Primary Care Provider [phone] Allergies Active Allergy Reactions Criticality Noted Date [...] patient's age to complete this topic Insurance [facility] C/O PROVIDER SERVICES AMELIE JOHNSON [id number] Care Teams Wedding Makeup Artist Relationship Specialty Start Date End Date Luís Villalta MD [address] [place] [address] PCP - General INTERNAL MEDICINE 09/13/21
--- OUTSIDE RECORDS SUMMARY | 2024-05-20 08:50 | XMS_ITS ---
Author Organization Unknown Address [id number] [place] [phone] Phone Care Team Providers Care Inclusion Manager Name Role Phone AC ROBINS Attending Unavailable JONO FRANCES Primary Unavailable Immunization Immunization Date Status Additional Notes Code Code System Influenza, split virus, trivalent, preservative 11/14/2017 Completed 141 CVX Social History Type Status Start Date End Date Code Code Syst em Smoking History Former smoker [id number] SNOMED CT Sex Female Hospital Discharge Instructions Should you have any questions prior to discharge, please contact a member of your healthcare team. If you have left the hospital and have any questions, please contact your primary care physician. Reason For Referral No Data Found Plan of Treatment Stress Test Treadmill 11/30/2022 Home Sleep Study Prep (45864) 3 Encounters Encounter Diagnosis Start Date Code Code Sys tem Drowsy 12/21/2022 [id number] SNOMED-CT Personal Care Team Section Performer Name Performer Role Active Date Inactive Da JUAN DANIEL Monroe PCP - Primary care physician 2022-09-28
--- OUTSIDE RECORDS SUMMARY | 2024-05-20 08:50 | XMS_ITS | Clinical Summary ---
Author Organization [facility] Address [address] [place] [address] Phone Care Team Providers Care Devops Name Role Phone Provider, Unknown Primary Care [...] on file Legal Sex Female 8:46 AM APPLICATION SOFTWARE ENGINEER Gender Identity Not on file Sexual Orientation Not on file Last Filed Vital Signs Vital Sign Reading Time Taken Comments Blood Pressure 142/106 03/24/2018 9:28 AM APPLICATION SOFTWARE ENGINEER Pulse 89 03/24/2018 9:28 AM APPLICATION SOFTWARE ENGINEER Temperature 37 C (98.6 F) 03/24/2018 9:28 AM APPLICATION SOFTWARE ENGINEER Respiratory Rate 16 03/24/2018 9:28 AM APPLICATION SOFTWARE ENGINEER Oxygen Saturation 97% 03/24/2018 9:28 AM APPLICATION SOFTWARE ENGINEER Inhaled Oxygen Concentration - - Weight 107.5 kg (237 lb) 03/24/2018 9:28 AM APPLICATION SOFTWARE ENGINEER Height 175.3 cm (5' 9 ) 03/24/2018 9:28 AM APPLICATION SOFTWARE ENGINEER Body Mass Index 35 03/24/2018 9:28 AM APPLICATION SOFTWARE ENGINEER Plan of Treatment Health Maintenance Due Date [...] patient's age to complete this topic Insurance [facility] Care Teams Devops Relationship Specialty Start Date End Date Provider, Unknown UNKNOWN PCP - General 03/24/18
[2024-05-20 09:08] LABS: Strep Group A RT-PCR NOT DETECTED (Negative)
[2024-05-20 09:21] LABS: Influenza A QL RT-PCR Negative (Negative); Influenza B QL RT-PCR Negative (Negative); RSV RNA, RT-PCR Negative (Negative); SARS-CoV-2 RNA PCR Negative (Negative)
--- NOTE | 2024-05-20 09:33 | PC.NURSE ---
CHULA Vergara at patient bedside at this time, discussing results and plan of care with patient.
[2024-05-20 09:42] VITALS: BP 146/96; PULSE 80; RESP 18; TEMP 36.2; O2SAT 96
== END 2024-05-20 09:43 | disposition home or self-care (01) ==
PROVIDERS: Emergency Provider Emergency Medicine; PCP Internal Medicine
DX: J01.00 Acute maxillary sinusitis, unspecified (principal); J20.9 Acute bronchitis, unspecified; I12.9 Hypertensive chronic kidney disease with stage 1 through stage 4 chronic kidney disease, or unspecified chronic kidney disease; N18.9 Chronic kidney disease, unspecified; Z87.891 Personal history of nicotine dependence; Z20.822 Contact with and (suspected) exposure to COVID-19; Z79.1 Long term (current) use of non-steroidal anti-inflammatories (NSAID)
CPT/HCPCS: 71046; 87637; 87651; 99285

== ENCOUNTER 2024-12-10 13:30 | Emergency (ER) | payer OTHER, SELFPAY ==
[2024-12-10 13:31] VITALS: BP 175/92; PULSE 81; RESP 16; TEMP 36.6; O2SAT 99
--- NOTE | 2024-12-10 13:35 | PC.NURSE ---
Wild Animal [facility]/ZAKI Morales. RN spoke with Spray Mixer Christina Thibodeaux ([phone]) who states that animal control and the zoo's vet were out to the property and evaluated the zebras today. No neurological concerns were indicated today. The Spray Mixer states that the vet will be out again on Tuesday for a second neurological evaluation. Spray Mixer states that the Zebras are unvaccinated. Spray Mixer states that there is no true zebra rabies vaccination. The zebras could receive and equine vaccination but it is not mandatory so they have not vaccinated their zebra.
--- NOTE | 2024-12-10 13:45 | PC.NURSE ---
[place] [facility] [employer] contacted by RN. RN spoke with Bonita Natarajan ([phone]) who states that they delayed in referring the pt to the ED due to [facility]. Originally the safari told Animal Control that the zebra had been vaccinated which posed little risk but after further investigation Animal Control found out that the Zebra was unvaccinated. Bonita states that due to there being no studies on equine rabies cases they could not give the safari nor the pt a monitoring period and directed her the the ER. Bonita states that due to there being no study it is up to the discretion of the provider whether or not to administer the rabies vaccine. MD Ursula currently waiting site monitor back from [facility] to determine course of action.
--- NOTE | 2024-12-10 14:11 | ED_ITS ---
HPI - Wound/Laceration General Chief Complaint: Wound/Laceration Stated Complaint: rt. hand animal bite Time Seen by Provider: 12/10/24 13:33 Source: patient Mode of arrival: ambulatory Limitations: no limitations History of Present Illness HPI narrative: Patient is a 59-year-old female with a right hand bite from a zebra at a petting zoo in [place] last week. Patient got bit multiple times in her hand on the right w ith a fracture is well from the animal. She went to her primary doctor and they are dealing with the fracture and the wounds which are healed up mostly at this time. Her tetanus was up-to-date. She was sent to the ER for rabies vaccination. We did a very thorough background check on the need for the rabies vaccine with this situation and all the way up to the State mental hygiene consultant agreed that shes he should get the vaccine/IG at this time. She is not having any neurological changes. The animals at the zoo are also appearing normal. They were all evaluated by a mental hygiene consultant. Onset (ago): day(s) (7) Location: other (Right thumb and 1st finger/pointer finger) Place: outdoors Patient tetanus UTD: Yes Context: accidental (This was provoked due to the fact that she was feeding the animals and the zebra came in for some food but bit her hand instead which batsheva ears to be accidental) Associated symptoms: none Treatments prior to arrival: other (Wound care by primary doctor) Related Data Home Medications ?Medication ?Instructions ?Recorded ?Confirmed ?Last Taken ?Type ergocalciferol (vitamin D2) 1,250 1,250 mcg PO DAILY 0 09/04/21 09/04/21 Unknown History mcg (50,000 unit) capsule lisinopril 20 1 tablet PO DAILY 09/04/21 0 09/04/21 Unknown History mg-hydrochlorothiazide 25 mg tablet doxepin 25 mg capsule mg 12/10/24 Unknown History duloxetine 30 mg capsule,delayed mg PO 12/10/24 Unkno wn History release losartan 100 tablet 12/10/24 Unknown His tory mg-hydrochlorothiazide 25 mg tablet triamcinolone acetonide 0.1 % topical 12/10/24 Unknow n History lotion Allergies Allergy/AdvReac Type Severity Reaction Status Date / Time sumatriptan (From Imitrex) Allergy Severe Swelling Verified 12/10/24 13:52 of Lip/Tongue/Throat Sulfa (Sulfonamide Allergy Intermediate Joint Verified 12/10/24 13:52 Antibiotics) swelling hydrocodone Allergy Unknown Verified 12/10/24 13:52 SUMATRIPTAN SUCCINATE Allergy Severe CLOSED Uncoded 05/20/24 08:17 AIRWAY Review of Systems Review of Systems: All systems reviewed & are unremarkable except as noted in HPI and below Constitutional: Constitutional: Reports no additional constitutional complaints Eyes: Eyes: Reports no additional eye complaints ENT: Reports system reviewed and no additional complaints, except as documented Cardiovascular: Cardiovascular: Reports no additional cardiovascular complaints Respiratory: Respiratory: Reports no additional respiratory complaints Gastrointestinal: Gastrointestinal: Reports no additional gastrointestinal complaints Genitourinary: Genitourinary: Reports no additional female genitourinary complaints Musculoskeletal: Musculoskeletal: Reports no additional musculoskeletal complaints Integumentary/Breasts: Skin/Breast: Reports system reviewed and no additional complaints, except as docu Neurologic: Reports system reviewed and no additional complaints, except as documented Psychiatric: Psychiatric: Reports no additional psychiatric complaints Endocrine: Endocrine: Reports no additional endocrine complaints Hematologic/Lymphatic: Hematologic/Lymphatic: Reports no additional hematologic/lymphatic complaints Allergic/Immunologic: Allergic/Immunologic: Reports no additional allergic/immunologic complaints PMFSH Past Medical History Medical History UTI (urinary tract infection) Diverticulitis HTN (hypertension) Chronic renal failure Migraines Surgical History Surgical History History of hysterectomy H/O sinus surgery History of History of carpal tunnel surgery Perirectal fistula x 2 Family History Family History Mother Hypertension Father Family history of congestive heart failure Grandparent Hypertension Other Diabetes mellitus Social History Social History Smoking status: Former smoker Second hand tobacco smoke exposure: No Smoking end date: 02/14/06 Alcohol intake: never Substance use: never Substance use type: does not use Living arrangements: with family Gender identity (if verbalized by the patient): Female Sexual Orientation (if Verbalized by the Patient): Straight or Heterosexual Spiritual care concerns: No Exam Const: General: healthy appearing Nutritional Appearance: well nourished Orientation/consciousness: patient oriented x3 HENMT: Head: normal to inspection Ears: external ears normal Face/Nose/Sinus: Normal external nose present Eyes: Conjunctivae: conjunctivae normal Pupils: Equal, round and reactive pupils present EOM: EOMs intact bilaterally Neck: Neck: normal visual inspection Chest: Chest palpation & inspection: normal inspection of the chest Resp: Effort & Inspection: normal respiratory effort and not labored Auscultation: clear to auscultation bilaterally and no crackles Cardio: Rate: regular rate Rhythm: regular rhythm Heart sounds: no murmurs GI: Inspection: non-distended GI Palp: Yes Soft to palpation, No Tenderness to palpation present (GI) and No Guarding due to palpation present (GI) Auscultation: normal bowel sounds and bowel sounds present Back/Spine/Pelvis: Back: no CVA tenderness Skin: General skin exam: normal color Rashes: no rashes Wounds: wound noted Other: Right hand has a few different healing areas around the base and the thumb as well as the local areas into the palm where the animal has bitten the patient; the areas are all closed up and healing well at this time Neuro: General: patient oriented x3, moves all extremities and no meningeal signs Other: No specific neurological changes to correlate with rabies Extrem: General: normal to inspection, no clubbing, cyanosis or edema and no pedal edema Psych: Mental Status: mental status grossly normal Affect: normal affect Attitude: cooperative Course Vital Signs Vital signs: Vital Signs Temperature 36.6 C 12/10/24 13:31 Pulse Rate 81 12/10/24 13:31 Respiratory Rate 16 12/10/24 13:31 Blood Pressure 175/92 H 12/10/24 13:31 Pulse Oximetry 99 12/10/24 13:31 Oxygen Delivery Room Air 12/10/24 13:31 Temperature 36.6 C 12/10/24 16:46 Pulse Rate 73 12/10/24 16:46 Respiratory Rate 17 12/10/24 16:46 Blood Pressure 164/97 H 12/10/24 16:46 Pulse Oximetry 100 12/10/24 16:46 Oxygen Delivery Room Air 12/10/24 16:46 Procedures Other Procedure Procedure 1: Other Procedure: Patient required rabies vaccination and immunoglobulin: Right hand: I injected numerous injections around 18 in a circular pattern around 4 different sites that the animal had bitten into the hand using the immunoglobulin and 2 cc were rule left over and put into the opposite deltoid per protocol; patient tolerated procedure well and no complications; the rest of the shots/vaccine were shot into the same side deltoid MDM - Wound/Laceration MDM Narrative Medical decision making narrative: Patient is a 59-year-old female with a right hand and all bite in the past week. We had done research for over 2 hours to try to make sure she requires the rabies vaccine. The final say came from the state mental hygiene consultant and they agreed the patient should get the rabies vaccine serices and plan. Discharge Plan Discharge Clinical Impression: Need for post exposure prophylaxis for rabies, Animal bite Patient Disposition: Home Condition: Stable Instructions: Rabies Vaccine (By injection), Rabies Immune Globulin (By injection), Rabies (ED) Additional Instructions: Please make sure to come back for your further outpatient rabies vaccine 3 more times. We will call you for the scheduled appointments. Patient Language: Gabonese Prescriptions: New RabAvert (PF) 2.5 unit suspension for reconstitution 2.5 unit IM ONCE Qty: 1 0RF Rx Instructions: Day 3, 7 and 14 No Action doxepin 25 mg capsule losartan-hydrochlorothiazide 100-25 mg tablet triamcinolone acetonide 0.1 % lotion TOPICAL duloxetine 30 mg capsule,delayed release(DR/EC) PO lisinopril-hydrochlorothiazide 20-25 mg tablet 1 tablet PO DAILY ergocalciferol (vitamin D2) 1,250 mcg (50,000 unit) capsule 1,250 mcg PO DAILY phenazopyridine [Pyridium] 200 mg tablet 200 mg PO TID PRN (Reason: pain) Qty: 10 0RF ketorolac 10 mg tablet 10 mg PO Q6H PRN (Reason: pain) Qty: 20 0RF ondansetron 4 mg tablet,disintegrating 4 mg PO Q6H PRN (Reason: nausea and vomiting) Qty: 20 0RF promethazine 25 mg tablet 25 mg PO Q6H PRN (Reason: nausea and vomiting) Qty: 20 0RF Follow-up/Referrals: Luís Villalta MD [Primary Care Provider, Internal Medicine] Time of Disposition: 16:04
[2024-12-10 15:00] VITALS: BP 150/89; PULSE 79; RESP 18; O2SAT 99
--- OUTSIDE RECORDS SUMMARY | 2024-12-10 15:06 | XMS_ITS | Clinical Summary ---
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 Gender Identity Not on file Sexual Orientation Not on file Last Filed Vital Signs Vital Sign Reading Time Taken Comments Blood Pressure 142/106 03/24/2018 9:28 AM RESISTOR TESTING MACHINE OPERATOR Pulse 89 03/24/2018 9:28 AM RESISTOR TESTING MACHINE OPERATOR Temperature 37 C (98.6 F) 03/24/2018 9:28 AM RESISTOR TESTING MACHINE OPERATOR Respiratory Rate 16 03/24/2018 9:28 AM RESISTOR TESTING MACHINE OPERATOR Oxygen Saturation 97% 03/24/2018 9:28 AM RESISTOR TESTING MACHINE OPERATOR Inhaled Oxygen Concentration - - Weight 107.5 kg (237 lb) 03/24/2018 9:28 AM RESISTOR TESTING MACHINE OPERATOR Height 175.3 cm (5' 9) 03/24/2018 9:28 AM RESISTOR TESTING MACHINE OPERATOR Body Mass Index 35 03/24/2018 9:28 AM RESISTOR TESTING MACHINE OPERATOR Plan of Treatment Health Maintenance Due Date Last Done Comments Hepatitis C Virus (HCV) Screening 1966 TdaP Immunization 1966 Hepatitis B Immunization (1 of 3 - 19+ 3-dose series) 1985 Cologuard 11/29/2011 Colonoscopy 11/29/2011 Colorectal Cancer Screening 11/29/2011 Immunochemical Fecal Occult Blood 11/29/2011 Pneumococcal Immunization (5 0+ years) (1 of 1 - PCV) 2016 Zoster Immunization (1 of 2) 2016 Influenza Immunization (#1) 2024 11/14/2017 SARS-COV-2 Immunization (1 - season) 2024 Respiratory Syncytial Virus (RSV) Immunization (Adult) (1 - 1-dose 75+ series) 2041 Human Papillomavirus (HPV) Immunization Aged Out No longer eligible b ased on patient's age to complete this topic Meningococcal Immunization (ACWY) Aged Out No longer eligible based on patient's age to complete this topic Rotavirus Immunization Aged Out No lo nger eligible based on patient's age to complete this topic Insurance [facility] GENERIC Care Teams Gore Seamer Relationship Specialty Start Date End Date Provider, Unknown UNKNOWN PCP - General 03/24/18
--- OUTSIDE RECORDS SUMMARY | 2024-12-10 15:39 | XMS_ITS | Clinical Summary ---
Author Organization [facility] Address [address] [place] [address] Phone Care Team Providers Care Software Quality Manager Name Role Phone Provider, Unknown Primary Care [...] on file Legal Sex Female 8:46 AM STEREO EQUIPMENT SALESPERSON Gender Identity Not on file Sexual Orientation Not on file Last Filed Vital Signs Vital Sign Reading Time Taken Comments Blood Pressure 142/106 03/24/2018 9:28 AM STEREO EQUIPMENT SALESPERSON Pulse 89 03/24/2018 9:28 AM STEREO EQUIPMENT SALESPERSON Temperature 37 C (98.6 F) 03/24/2018 9:28 AM STEREO EQUIPMENT SALESPERSON Respiratory Rate 16 03/24/2018 9:28 AM STEREO EQUIPMENT SALESPERSON Oxygen Saturation 97% 03/24/2018 9:28 AM STEREO EQUIPMENT SALESPERSON Inhaled Oxygen Concentration - - Weight 107.5 kg (237 lb) 03/24/2018 9:28 AM STEREO EQUIPMENT SALESPERSON Height 175.3 cm (5' 9) 03/24/2018 9:28 AM STEREO EQUIPMENT SALESPERSON Body Mass Index 35 03/24/2018 9:28 AM STEREO EQUIPMENT SALESPERSON Plan of Treatment Health Maintenance Due Date [...] patient's age to complete this topic Insurance [facility] GENERIC Care Teams Software Quality Manager Relationship Specialty Start Date End Date Provider, Unknown UNKNOWN PCP - General 03/24/18
[2024-12-10] MEDS: RABIES VACCINE (IMOVAX) 2.5 UNITS VIAL IM (16:19)
[2024-12-10 16:46] VITALS: BP 164/97; PULSE 73; RESP 17; TEMP 36.6; O2SAT 100
== END 2024-12-10 17:00 | disposition home or self-care (01) ==
PROVIDERS: Emergency Provider Emergency Medicine; PCP Internal Medicine
DX: S61.451D Open bite of right hand, subsequent encounter (principal); I12.9 Hypertensive chronic kidney disease with stage 1 through stage 4 chronic kidney disease, or unspecified chronic kidney disease; N18.9 Chronic kidney disease, unspecified; Z79.899 Other long term (current) drug therapy; Z87.891 Personal history of nicotine dependence; Z23 Encounter for immunization; W55 Contact with other mammals
CPT/HCPCS: 29130; 90375; 90471; 90675; 96372; 99283

== ENCOUNTER 2024-12-13 08:23 | Outpatient (CLI) | payer OTHER, SELFPAY ==
--- NOTE | ~2024-12-13 | XR_ITS ---
EXAMINATION: XR hand RT min 3V DATE: 12/13/2024 09:01 INDICATION: Right hand pain TECHNIQUE: Posteroanterior, oblique and lateral views of the right hand were obtained. COMPARISON: None. FINDINGS: Alignment is normal. No fracture. Joint spaces are normal. Chondrocalcinosis in the region of the triangular fibrocartilage complex. There is small lucency was chronic markings at the ulnar side of the posterior articular surface of the lunate which could represent a degenerative subchondral cyst or chronic erosion. IMPRESSION: 1. No acute osseous abnormality. 2. Chondrocalcinosis in the region of the triangular fibrocartilage complex with adjacent small degenerative cyst versus erosion at the proximal articular surface of the lunate. Reviewed, dictated and finalized at location A. IMPRESSION: 1. No acute osseous abnormality. 2. Chondrocalcinosis in the region of the triangular fibrocartilage complex wit h adjacent small degenerative cyst versus erosion at the proximal articular ryan face of the lunate.
--- OUTSIDE RECORDS SUMMARY | 2024-12-13 08:35 | XMS_ITS | Clinical Summary ---
Author Organization [facility] Address [address] [place] [address] Phone Care Team Providers Care Wireless Technician Name Role Phone Provider, Unknown Primary Care [...] on file Legal Sex Female 8:46 AM NURSE REVIEWER Gender Identity Not on file Sexual Orientation Not on file Last Filed Vital Signs Vital Sign Reading Time Taken Comments Blood Pressure 142/106 03/24/2018 9:28 AM NURSE REVIEWER Pulse 89 03/24/2018 9:28 AM NURSE REVIEWER Temperature 37 C (98.6 F) 03/24/2018 9:28 AM NURSE REVIEWER Respiratory Rate 16 03/24/2018 9:28 AM NURSE REVIEWER Oxygen Saturation 97% 03/24/2018 9:28 AM NURSE REVIEWER Inhaled Oxygen Concentration - - Weight 107.5 kg (237 lb) 03/24/2018 9:28 AM NURSE REVIEWER Height 175.3 cm (5' 9) 03/24/2018 9:28 AM NURSE REVIEWER Body Mass Index 35 03/24/2018 9:28 AM NURSE REVIEWER Plan of Treatment Health Maintenance Due Date [...] patient's age to complete this topic Insurance [facility] GENERIC Care Teams Wireless Technician Relationship Specialty Start Date End Date Provider, Unknown UNKNOWN PCP - General 03/24/18
[2024-12-13 08:36] VITALS: BP 150/79; PULSE 80; RESP 20; TEMP 36.6; O2SAT 98; BMI 32.5
[2024-12-13] MEDS: RABIES VACCINE (IMOVAX) 2.5 UNITS VIAL IM (08:43)
[2024-12-13 08:55] VITALS: BP 146/74
== END 2024-12-13 08:24 | disposition home or self-care (01) ==
PROVIDERS: PCP Internal Medicine; Visit Provider Emergency Medicine
DX: Z29.14 Encounter for prophylactic rabies immune globulin (principal); Z20.3 Contact with and (suspected) exposure to rabies; M79.641 Pain in right hand; M11.241 Other chondrocalcinosis, right hand
CPT/HCPCS: 73130; 90471; 90675

== ENCOUNTER 2024-12-17 08:36 | Outpatient (CLI) | payer OTHER, SELFPAY ==
--- OUTSIDE RECORDS SUMMARY | 2024-12-17 08:51 | XMS_ITS | Clinical Summary ---
Author Organization [facility] Address [address] [place] [address] Phone Care Team Providers Care Icu Rn Name Role Phone Provider, Unknown Primary Care [...] on file Legal Sex Female 8:46 AM PRINCIPAL PROCESS ENGINEER Gender Identity Not on file Sexual Orientation Not on file Last Filed Vital Signs Vital Sign Reading Time Taken Comments Blood Pressure 142/106 03/24/2018 9:28 AM PRINCIPAL PROCESS ENGINEER Pulse 89 03/24/2018 9:28 AM PRINCIPAL PROCESS ENGINEER Temperature 37 C (98.6 F) 03/24/2018 9:28 AM PRINCIPAL PROCESS ENGINEER Respiratory Rate 16 03/24/2018 9:28 AM PRINCIPAL PROCESS ENGINEER Oxygen Saturation 97% 03/24/2018 9:28 AM PRINCIPAL PROCESS ENGINEER Inhaled Oxygen Concentration - - Weight 107.5 kg (237 lb) 03/24/2018 9:28 AM PRINCIPAL PROCESS ENGINEER Height 175.3 cm (5' 9) 03/24/2018 9:28 AM PRINCIPAL PROCESS ENGINEER Body Mass Index 35 03/24/2018 9:28 AM PRINCIPAL PROCESS ENGINEER Plan of Treatment Health Maintenance Due [...] patient's age to complete this topic Insurance [facility] GENER[facility] Care Teams Icu Rn Relationship Specialty Start Date End Date Provider, Unknown UNKNOWN PCP - General 03/24/18
--- OUTSIDE RECORDS SUMMARY | 2024-12-17 08:51 | XMS_ITS | Clinical Summary ---
Author Organization [facility] Address [address] [place] [address] Care Team Providers Care Hand Cutter Apprentice Name Role Phone Luís Villalta MD Primary Care Provider [phone] Allergies Active Allergy Reactions Criticality Noted Date [...] 10:08 AM CDT Height 175.3 cm (5' 9) 06/11/2023 10:0 8 AM CDT Body Mass Index 33.37 06/11/2023 10:08 AM CDT Plan of Treatment Health Maintenance Due Date Last Done Comments Colorectal Cancer Screening Colonoscopy (10 Years) 1966 Annual Physical 1969 Hepatitis C 1984 DTaP, Tdap and Td Vaccines ( 1 - Tdap) 1985 Hepatitis B Vaccines (1 of 3 - 19+ 3-dose series) 1985 Mammogram Screening 2006 Pneumococcal Vaccine: 50+ Ye ars (1 of 1 - PCV) 2016 Zoster Vaccines (1 of 2) 2016 COVID-19 Vaccine (1 - 2024-2 6 season) 2024 Influenza Adult (#1) 2024 11/14/2017 Hepatitis A Vaccines Aged Out No long er eligible based on patient's age to complete this topic Meningococcal B Vaccine Aged Out No l onger eligible based on patient's age to complete this topic Meningococcal Vaccine Aged Out No umm bernard eligible based on patient's age to complete this topic RSV Immunizations Under 20 Months Aged Out No longer eligible based on patient's age to complete this topic Insurance [employer] [id number] Care Teams Hand Cutter Apprentice Relationship Specialty Start Date End Date Luís Villalta MD [address] [place] [address] PCP - General INTERNAL MEDICINE 09/13/21
[2024-12-17 09:01] VITALS: BMI 34.0
[2024-12-17 09:03] VITALS: BP 122/89; PULSE 78; RESP 20; TEMP 36.1; O2SAT 98
[2024-12-17] MEDS: RABIES VACCINE (IMOVAX) 2.5 UNITS VIAL IM (09:06)
== END 2024-12-17 09:13 | disposition home or self-care (01) ==
PROVIDERS: PCP Internal Medicine; Visit Provider Emergency Medicine
DX: Z29.14 Encounter for prophylactic rabies immune globulin (principal); Z20.3 Contact with and (suspected) exposure to rabies
CPT/HCPCS: 90471; 90675; 96372

== ENCOUNTER 2024-12-24 08:44 | Outpatient (CLI) | payer OTHER, SELFPAY ==
--- OUTSIDE RECORDS SUMMARY | 2024-12-24 09:03 | XMS_ITS | Clinical Summary ---
Author Organization [facility] Address [address] [place] [address] Phone Care Team Providers Care Supervisor Line Department Name Role Phone Provider, Unknown Primary Care [...] on file Legal Sex Female 8:46 AM ADVISORY INTERN Gender Identity Not on file Sexual Orientation Not on file Last Filed Vital Signs Vital Sign Reading Time Taken Comments Blood Pressure 142/106 03/24/2018 9:28 AM ADVISORY INTERN Pulse 89 03/24/2018 9:28 AM ADVISORY INTERN Temperature 37 C (98.6 F) 03/24/2018 9:28 AM ADVISORY INTERN Respiratory Rate 16 03/24/2018 9:28 AM ADVISORY INTERN Oxygen Saturation 97% 03/24/2018 9:28 AM ADVISORY INTERN Inhaled Oxygen Concentration - - Weight 107.5 kg (237 lb) 03/24/2018 9:28 AM ADVISORY INTERN Height 175.3 cm (5' 9) 03/24/2018 9:28 AM ADVISORY INTERN Body Mass Index 35 03/24/2018 9:28 AM ADVISORY INTERN Plan of Treatment Health Maintenance Due Date [...] patient's age to complete this topic Insurance [facility] GENER[facility] Care Teams Supervisor Line Department Relationship Specialty Start Date End Date Provider, Unknown UNKNOWN PCP - General 03/24/18
--- OUTSIDE RECORDS SUMMARY | 2024-12-24 09:03 | XMS_ITS | Clinical Summary ---
Author Organization [facility] Address [address] [place] [address] Care Team Providers Care Plant Inspector Name Role Phone Luís Villalta MD Primary Care Provider [phone] Allergies Active Allergy Reactions Criticality Noted Date [...] topic Insurance [employer] [id number] Care Teams Plant Inspector Relationship Specialty Start Date End Date Luís Villalta MD [address] [place] [address] PCP - General INTERNAL MEDICINE 09/13/21
[2024-12-24 09:08] VITALS: BMI 32.5
[2024-12-24 09:20] VITALS: BP 170/86; PULSE 82; RESP 14; TEMP 36.6; O2SAT 98
[2024-12-24] MEDS: RABIES VACCINE (IMOVAX) 2.5 UNITS VIAL IM (09:20)
[2024-12-24 09:35] VITALS: BP 144/83
== END 2024-12-24 08:45 | disposition home or self-care (01) ==
PROVIDERS: PCP Internal Medicine; Visit Provider Emergency Medicine
DX: Z29.14 Encounter for prophylactic rabies immune globulin (principal); Z20.3 Contact with and (suspected) exposure to rabies
CPT/HCPCS: 90471; 90675

== ENCOUNTER 2025-01-05 10:54 | Outpatient (CLI) | payer OTHER, SELFPAY ==
--- NOTE | ~2025-01-05 | MR_ITS ---
EXAMINATION: MRI, right wrist without contrast: DATE: 01/07/2025. INDICATION: Trauma. Pain for one month. TECHNIQUE: Axial, coronal and sagittal images were obtained. COMPARISON: Right hand x-ray dated 12/13/2024. FINDINGS: No acute bony lesions are seen at the right wrist. Chronic degenerative changes of radiocarpal joint along with chondrocalcinosis of triangular fibrocartilage. Chronic degenerative changes and chronic-appearing tear of the triangular fibrocartilage is noted. Ganglion cyst within the distal scaphoid bone. Small ganglion cyst within the lunate. Significant degenerative changes of the first carpometacarpal joint. No abnormalities of the tendons and ligaments. IMPRESSION: 1. Moderate degenerative arthritis radiocarpal joint. Chondrocalcinosis of the triangular fibrocartilage with degenerative changes. Chronic tear of the triangular fibrocartilage. 2. Intraosseous ganglion cyst within the scaphoid bone and lunate bone. 3. Significant degenerative changes of first carpometacarpal joint. Reviewed, dictated and finalized at location [facility]. [facility] DEPARTMENT CHIEF IMPRESSION: 1. Moderate degenerative arthritis radiocarpal joint. Chondrocalcinosis of the triangular fibrocartilage with degenerative changes. Chronic tear of the triang ular fibrocartilage. 2. Intraosseous ganglion cyst within the scaphoid bone and lunate bone. 3. Significant degenerative changes of first carpometacarpal joint.
--- OUTSIDE RECORDS SUMMARY | 2025-01-05 10:57 | XMS_ITS ---
Author Organization Unknown Address [address] [place] [phone] Phone Care Team Providers Care Cook Fishing Vessel Name Role Phone AC ROBINS Attending Unavailable JONO FRANCES Primary Unavailable Immunization Immunization Date Status Additional Notes Code Code System Influenza, split virus, trivalent, preservative 11/14/2017 Completed 141 CVX Social History Type Status Start Date End Date Code Code Syst em Smoking History Former smoker [id number] SNOMED CT Sex Female Hospital Discharge Instructions Should you have any questions prior to discharge, please contact a member of your healthcare team. If you have left the hospital and have any questions, please contact your primary care physician. Reason For Referral No Data Found Plan of Treatment Stress Test Treadmill 11/30/2022 Home Sleep Study Prep (79741) 3 Encounters Encounter Diagnosis Start Date Code Code Sys tem Drowsy 12/21/2022 [id number] SNOMED-CT Personal Care Team Section Performer Name Performer Role Active Date Inactive Da JUAN DANIEL Monroe PCP - Primary care physician 2022-09-28
--- OUTSIDE RECORDS SUMMARY | 2025-01-05 10:57 | XMS_ITS | Clinical Summary ---
Author Organization [facility] Address [address] [place] [address] Care Team Providers Care Janitor Caretaker Name Role Phone Luís Villalta MD Primary Care Provider [phone] Allergies Active Allergy Reactions Criticality Noted Date [...] topic Insurance [employer] [id number] Care Teams Janitor Caretaker Relationship Specialty Start Date End Date Luís Villalta MD [address] [place] [address] PCP - General INTERNAL MEDICINE 09/13/21
--- OUTSIDE RECORDS SUMMARY | 2025-01-05 10:57 | XMS_ITS | Clinical Summary ---
Author Organization [facility] Address [address] [place] [address] Phone Care Team Providers Care Ripsaw Operator Name Role Phone Provider, Unknown Primary Care [...] on file Legal Sex Female 8:46 AM BACON DE RINDER Gender Identity Not on file Sexual Orientation Not on file Last Filed Vital Signs Vital Sign Reading Time Taken Comments Blood Pressure 142/106 03/24/2018 9:28 AM BACON DE RINDER Pulse 89 03/24/2018 9:28 AM BACON DE RINDER Temperature 37 C (98.6 F) 03/24/2018 9:28 AM BACON DE RINDER Respiratory Rate 16 03/24/2018 9:28 AM BACON DE RINDER Oxygen Saturation 97% 03/24/2018 9:28 AM BACON DE RINDER Inhaled Oxygen Concentration - - Weight 107.5 kg (237 lb) 03/24/2018 9:28 AM BACON DE RINDER Height 175.3 cm (5' 9) 03/24/2018 9:28 AM BACON DE RINDER Body Mass Index 35 03/24/2018 9:28 AM BACON DE RINDER Plan of Treatment Health Maintenance Due Date [...] patient's age to complete this topic Insurance [facility] GENER[facility] Care Teams Ripsaw Operator Relationship Specialty Start Date End Date Provider, Unknown UNKNOWN PCP - General 03/24/18
== END 2025-01-05 10:55 | disposition home or self-care (01) ==
LOC: CHSIMG 10:55
PROVIDERS: PCP Internal Medicine; Visit Provider Internal Medicine
DX: M25.531 Pain in right wrist (principal); S62.124A Nondisplaced fracture of lunate [semilunar], right wrist, initial encounter for closed fracture; M19.031 Primary osteoarthritis, right wrist; M11.231 Other chondrocalcinosis, right wrist; S63.591A Other specified sprain of right wrist, initial encounter; M67.431 Ganglion, right wrist
CPT/HCPCS: 73221